=== PATIENT | female | born 1965 ===

== ENCOUNTER 2016-08-07 06:20 | Inpatient (IN) | payer MEDICARE, OTHER ==
--- NOTE | 2016-08-07 06:28 | ED PDOC ---
Arrival/HPI - General Time Seen by Provider: 08/07/16 06:27 - History of Present Illness Narrative History of Present Illness (Text): 08/07/16 06:27 Patient returns to ED for admission if the patient eloped patient was to be admitted to psychiatry patient exhibits drug-seeking behavior patient was previously evaluated by PES for admission and accepted Past Medical History - Provider Review Nursing Documentation Reviewed: Yes - Infectious Disease Hx of Infectious Diseases: None - Tetanus Immunization Tetanus Immunization: Unknown - Past Medical History Past Medical History: No Previous - Cardiac Hx Cardiac Disorders: No (Unknown at present.) - Pulmonary Hx Respiratory Disorders: No - Neurological Hx Paralysis: No - HEENT Hx HEENT Disorder: Yes (Wears glasses.) - Renal Hx Renal Disorder: No - Endocrine/Metabolic Hx Endocrine Disorders: No - Hematological/Oncological Hx Blood Transfusions: No - Integumentary Hx Dermatological Disorder: No - Musculoskeletal/Rheumatological Hx Musculoskeletal Disorders: No - Gastrointestinal Hx Gastrointestinal Disorders: Yes Hx Colitis: Yes Hx Diverticulitis: Yes Hx Gastroesophageal Reflux: Yes Other/Comment: 06/2016 endoscopy- colitis - Genitourinary/Gynecological Hx Genitourinary Disorders: No - Psychiatric Hx Anxiety: Yes Hx Bipolar Disorder: Yes Hx Depression: Yes Hx Emotional Abuse: No Hx Physical Abuse: No Hx Substance Use: No - Past Surgical History Past Surgical History: No Previous - Surgical History Hx Appendectomy: Yes - Anesthesia Hx Anesthesia: Yes Hx Anesthesia Reactions: No Hx Malignant Hyperthermia: No - Suicidal Assessment Feels Threatened In Home Enviroment: No Family/Social History - Physician Review Nursing Documentation Reviewed: Yes Family/Social History: No Known Family HX Smoking Status: Heavy Smoker > 10 Cigarettes Daily Hx Alcohol Use: Yes Hx Substance Use: No Hx Substance Use Treatment: No Allergies/Home Meds Allergies/Adverse Reactions: Allergies haloperidol [From Haldol] Allergy (Verified 08/08/16 01:43) ANAPHYLAXIS haloperidol lactate [From Haldol] Allergy (Verified 08/08/16 01:43) ANAPHYLAXIS lamotrigine [From Lamictal] Allergy (Verified 08/08/16 01:43) ANAPHYLAXIS Home Medications: Home Meds Medication Instructions Recorded Confirmed Benztropine [Benztropine Mesylate] 1 mg PO BID 09/03/14 08/08/16 FLUoxetine [Fluoxetine HCl] 20 mg PO DAILY 03/14/16 08/08/16 Review of Systems - Review of Systems Constitutional: Normal Eyes: Normal ENT: Normal Respiratory: Normal Cardiovascular: Normal Gastrointestinal: Abdominal Pain Genitourinary Female: Normal Musculoskeletal: Normal Skin: Normal Neurological: Normal Endocrine: Normal Hemo/Lymphatic: Normal Psychiatric: Depression, Suicidal Ideation Physical Exam Vital Signs Reviewed: Yes Vital Signs Temp Pulse Resp BP Pulse Ox 08/07/16 06:53 98 F 75 19 112/74 99 08/07/16 06:33 98.1 F 78 18 136/78 98 Temperature: Afebrile Blood Pressure: Normal Pulse: Regular Respiratory Rate: Normal Appearance: Positive for: Well-Appearing, Non-Toxic, Comfortable Pain Distress: None Mental Status: Positive for: Alert and Oriented X 3 - Systems Exam Head: Present: Atraumatic, Normocephalic Pupils: Present: PERRL Extroacular Muscles: Present: EOMI Conjunctiva: Present: Normal Mouth: Present: Moist Mucous Membranes Neck: Present: Normal Range of Motion Respiratory/Chest: Present: Clear to Auscultation, Good Air Exchange. No: Respiratory Distress, Accessory Muscle Use Cardiovascular: Present: Regular Rate and Rhythm, Normal S1, S2. No: Murmurs Abdomen: Present: Normal Bowel Sounds. No: Tenderness, Distention, Peritoneal Signs Back: Present: Normal Inspection Upper Extremity: Present: Normal Inspection. No: Cyanosis, Edema Lower Extremity: Present: Normal Inspection. No: Edema Neurological: Present: GCS=15, CN II-XII Intact, Speech Normal Skin: Present: Warm, Dry, Normal Color. No: Rashes Psychiatric: Present: Alert, Oriented x 3, Normal Insight, Normal Concentration. No: Suicidal Ideation, Homicidal Ideation Medical Decision Making - Medication Orders Current Medication Orders: Acetaminophen (Tylenol 325mg Tab) 650 mg PO Q4H PRN PRN Reason: Pain, Mild (1-3) Al Hydrox/Mg Hydrox/Simethicone (Maalox Plus 30 Ml) 30 ml PO DAILY PRN PRN Reason: Upset Stomach Clonazepam (Klonopin) 1 mg PO AMHS BETSEY PRN Reason: Protocol Last Admin: 08/09/16 21:56 Dose: 1 MG Behavioural Document 08/09/16 21:56 MB (Rec: 08/09/16 21:56 MB [id number]) Maintenance Maintenance Dose Yes Re-Assess: Reassess Psych Meds Document 08/09/16 22:56 MB (Rec: 08/10/16 02:53 [id number] Reassess Psych Med Effective Divalproex Sodium (Depakote Er(Once Daily)) 500 mg PO HS BETSEY PRN Reason: Protocol Last Admin: 08/09/16 21:57 Dose: 500 MG Behavioural Document 08/09/16 21:57 MB (Rec: 08/09/16 21:57 [id number] Maintenance Maintenance Dose Yes Re-Assess: Reassess Psych Meds Document 08/09/16 22:57 MB (Rec: 08/10/16 02:53 MB [id number]) Reassess Psych Med Effective Fluoxetine HCl (Prozac) 20 mg PO BID [facility]SEY Last Admin: 08/09/16 17:11 Dose: 20 MG Magnesium Hydroxide (Milk Of Magnesia) 30 ml PO DAILY PRN PRN Reason: Constipation Pantoprazole Sodium (Protonix Ec Tab) 40 mg PO ACB [facility] Last Admin: 08/09/16 09:29 Dose: 40 MG Risperidone (Risperdal Tab) 1 mg PO AMHS BETSEY PRN Reason: Protocol Last Admin: 08/09/16 21:56 Dose: 1 MG Behavioural Document 08/09/16 21:56 MB (Rec: 08/09/16 21:57 MB [id number]) Maintenance Maintenance Dose Yes Re-Assess: Reassess Psych Meds Document 08/09/16 22:56 MB (Rec: 08/10/16 02:53 [id number] Reassess Psych Med Effective Discontinued Medications Clonazepam (Klonopin) 1 mg PO BID BETSEY PRN Reason: Protocol Divalproex Sodium (Depakote Er(Once Daily)) 500 mg PO DAILY [facility]Y PRN Reason: Protocol Last Admin: 08/08/16 09:28 Dose: Divalproex Sodium (Depakote Er(Once Daily)) 500 mg PO STAT STA PRN Reason: Protocol Stop: 08/07/16 11:11 Last Admin: 08/07/16 11:51 Dose: 500 MG Re-Assess: Reassess Psych Meds Document 08/07/16 12:51 CV (Rec: 08/07/16 15:37 CV [id number]) Reassess Psych Med Effective Fluoxetine HCl (Prozac) 20 mg PO DAILY [facility] Last Admin: 08/08/16 09:31 Dose: Fluoxetine HCl (Prozac) 20 mg PO STAT STA Stop: 08/07/16 11:09 Last Admin: 08/07/16 11:52 Dose: 20 MG Disposition/Present on Arrival - Present on Arrival Any Indicators Present on Arrival: No History of DVT/PE: No History of Uncontrolled Diabetes: No Urinary Catheter: No History Surgical Site Infection Following: None - Disposition Have Diagnosis and Disposition been Completed?: Yes Diagnosis: Depressive disorder Disposition: HOSPITALIZED Disposition Time: 06:50 Condition: GOOD
[2016-08-07 06:33] VITALS: BMI 27.5
[2016-08-07 06:54] VITALS: O2SAT 99
[2016-08-07 11:02] LABS: ADD MANUAL DIFF? NO
[2016-08-07 11:07] LABS: BASO # 0.05 K/mm3 (0.0-2.0); BASO % 0.4 % (0.0-3.0); EOS # 0.3 (0.0-0.7); GRAN # 7.75 (1.4-6.5); GRAN % 63.5 % (50.0-68.0); HEMATOCRIT 33.5 % (36.0-48.0); LYMPH # 3.2 (1.2-3.4); LYMPH % 26.2 % (22.0-35.0); MEAN CELL VOLUME 90.1 fL (80.0-105.0); MEAN CORPUSCULAR HEMOGLOBIN 30.4 pg (25.0-35.0); MEAN CORPUSCULAR HGB CONC 33.7 g/dl (31.0-37.0); MEAN PLATELET VOLUME 9.2 fl (7.0-11.0); MONO % 7.9 % (1.0-6.0); PLATELET COUNT 479 10^3/uL (120.0-450.0); RED CELL DISTRIBUTION WIDTH 16.1 % (11.5-14.5); WHITE BLOOD COUNT 12.2 10^3/ul (4.5-11.0)
[2016-08-07] MEDS ORDERED: Divalproex 500 mg ER (ONCE DAILY formulation) PO STA (11:10)
[2016-08-07 11:15] LABS: ALKALINE PHOSPHATASE 94 U/L (38-133); ALT/SGPT 22 U/L (7-56); AST/SGOT 33 U/L (15-39); BILIRUBIN,TOTAL 0.8 mg/dL (0.2-1.3); BLOOD UREA NITROGEN 10 mg/dL (7-21); CALCIUM 9.2 mg/dL (8.4-10.5); CARBON DIOXIDE 27 mmol/L (21-33); CHLORIDE 104 mmol/L (98-107); CHOLESTEROL 221 mg/dL (130-200); GFR AFRICAN-AMERICAN > 60; GLUCOSE,RANDOM 95 mg/dL (70-110); SODIUM 140 mmol/L (132-148); TOTAL PROTEIN 7.6 g/dL (5.8-8.3)
[2016-08-07] MEDS ORDERED: FLUoxetine Elix 20 MG/5 ML PO SCH (11:15)
[2016-08-08] MEDS ORDERED: Alum-Mag Hydrox-Simethicone Susp (30 mL) PO PRN (00:42)
[2016-08-08] MEDS ORDERED: Magnesium Hydroxide Susp 30 ml UD PO PRN (00:42)
[2016-08-08] MEDS ORDERED: Divalproex 500 mg ER (ONCE DAILY formulation) PO SCH (08:00)
[2016-08-08] MEDS: Pantoprazole 40 mg EC Tab PO SCH (17:38)
--- NOTE | 2016-08-08 18:51 | HP ---
The patient is a , 50-year-old, female with a history of reported bipolar disorder, multiple psychiatric admissions as well as suicide attempts with followup with Dr. Garcia as an outpat ient, who was brought in by her family to the ER for complaints of abdominal pain. However, further interview with family revealed that patient has been discussing suicidal thoughts in the days prior t o her presentation to the ER. The patient initially agreed to sign herself in voluntarily for treatm ent, however, eloped from the ER and was brought back by ambulance after her nephew called expressing concern for her wellbeing. The patient has a history of a recent overdose on Seroquel, alcohol and benzos, which landed her in the ICU during her admission from 07/18/2016 to 07/24/2016 and [facility] thereafter. During her hospitalization in the ICU, she was seen by Dr. Bonilla and alannah ated with Zyprexa 15 mg at bedtime, Klonopin 1 mg b.i.d., Prozac 20 mg and Depakote ER 1000 at bedtim e. The patient reports that she has been seeing Dr. Garcia and is currently being prescribed Xanax p. r.n. 2 mg daily, Prozac 20 mg p.o. b.i.d., Cogentin 2 mg p.o. daily presumably for the side effects o f Seroquel, which was discontinued by Dr. Garcia recently and Restoril unknown dose. I met with patient at bedside and patient denies having any suicidal thoughts or discussing having an y suicidal thoughts. She reports that she feels like she has been functioning relatively well and th at she has been taking the medications that Dr. Garcia had prescribed. The patient reports her sleep has been restful and she slept well last night and she denies having any pain and she feels rested. She is superficially friendly, cooperative and there have been no behavioral issues on the unit. She is groomed and delusions were not elicited. The patient denies any hallucinations. The patient ___ __ having suicidal thoughts because he is currently staying at her place and he wants to stay there l onger with her out of the way. PSYCHIATRIC HISTORY: The patient with multiple psychiatric hospitalizations. Most recently, patient was hospitalized from 07/18/2016 to 07/24/2016 after she overdosed on Seroquel, alcohol and benzos. T he patient was screened and involuntarily transferred to [facility]. The patient rep orted that the patient also had a suicide attempt approximately 2 years ago and was in the ICU. She reports that she sees Dr. Garcia as an outpatient and her next appointment was supposed to be tomorrow on 08/09/2016. Her most recent appointment with him was a month ago. The patient reports at that ti me, she was prescribed Xanax p.r.n. 2 mg daily, Prozac 20 mg p.o. b.i.d., Cogentin 2 mg daily and Res toril, unknown dose. SOCIAL HISTORY: The patient was born in [place] and raised in [place] and [place]. She is di vorced. She has 2 kids who are twins. The patient reports that she lives by herself, however, her n ephew has been staying with her recently. The patient reported she graduated high school. IMPRESSION: Bipolar disorder by history. PLAN: 1. Group milieu and supportive therapy. 2. Depakote 500 mg p.o. at bedtime to help with mood and impulse control. 3. Klonopin 1 mg a.m. and at bedtime to help with mood control as well as reports of anxiety. 4. Prozac 20 mg p.o. b.i.d. for depression and anxiety. 5. Currently awaiting medical consult. 6. Vitals were reviewed and as of 9 a.m. this morning, they were 98.3, 76, 112/72 and 16. 7. Labs were reviewed and on 08/07/2016, CBC showed a white blood cell count of 12.2, hemoglobin and hematocrit of 11.3 and 33.5 respectively, and a platelet count of 479, which is high. The chemistry profile and LFTs were within normal limits. Triglycerides on 08/07 was 89, cholesterol level was elev ated to 21, LDL was elevated at 141, HDL was 49, within normal limits. TSH was within normal limits at 0.57. RPR was nonreactive. Her last glucose on 08/08/2006 was 82 . Kelli Huerta MD cc: [id number] TT: 08/08/2016 18:50:38 en
[2016-08-08] MEDS: Divalproex 500 mg ER (ONCE DAILY formulation) PO SCH (21:54)
[2016-08-09 07:14] LABS: HEMATOCRIT 33.8 % (36.0-48.0); MEAN CELL VOLUME 91.6 fL (80.0-105.0); MEAN CORPUSCULAR HEMOGLOBIN 29.8 pg (25.0-35.0); MEAN CORPUSCULAR HGB CONC 32.5 g/dl (31.0-37.0); MEAN PLATELET VOLUME 9.3 fl (7.0-11.0); RED CELL DISTRIBUTION WIDTH 16.4 % (11.5-14.5); WHITE BLOOD COUNT 9.7 10^3/ul (4.5-11.0)
[2016-08-09] MEDS: Pantoprazole 40 mg EC Tab PO SCH (09:29)
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
[2016-08-09] MEDS: Divalproex 500 mg ER (ONCE DAILY formulation) PO SCH (21:57)
[2016-08-10] MEDS: Pantoprazole 40 mg EC Tab PO SCH (08:57)
[2016-08-10 10:01] VITALS: RESP 20
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
--- NOTE | 2016-08-10 16:32 | CON ---
DATE: 08/08/2016 REASON FOR CONSULT: Medical evaluations. HISTORY OF PRESENT ILLNESS: This patient is a 50-year-old female with history of bipolar disorder, d epression with recent admissions, with drug overdose Seroquel and was in ICU, seen by Dr. Bonilla and she was discharged to involuntary admissions, committed with involuntary admission to [facility] and was released recently. Medically, patient does have anemia. She has GI evaluations including colonoscopy with removing of benign polyps and also, she has a gastritis. Her anemia seems stable. Her medical condition seems stable. She does have some low cholesterol mild problems. She is watching her diet, questionable her compliance with diet. She also has a weight issue. Her BMI is elevated. She has an elevated BMI. Currently, she has no new complaints. She is on the bedside. No new complaint. No chest pain, no short of breath, no nausea, no vomiting, no burning urination. No fever, no chills. ALLERGIES: ALLERGIC TO HALDOL AND LAMOTRIGINE. SOCIAL HISTORY: She is . She lives by herself. She has 2 children grownup, one was in the in [place] and came back. Also, she has a boyfriend who ____ her and she had a conflict with [employer] and was rejected and she lives right now. She was born in [place]. She was raised in [place] . She lived in [place] for a while and then she came to [place]. Currently, she is by herself and her nephew recently was homeless and got lived in with her recently in an apartment. She smoked, no dri nking. FAMILY HISTORY: Noncontributory. REVIEW OF SYSTEMS: She does complain sometimes of dyspepsia, abdominal discomfort. Occasionally she has rectal bleeding, which she had a colonoscopy for it. She does have also hemorrhoids. PHYSICAL EXAMINATION: VITAL SIGNS: As follows: Temperature 98, heart rate 76, blood pressure 117/72, respirations 18. HEAD AND NECK: Normal. No JVD, no thyromegaly. CHEST: Clear, good entry. CARDIAC: First sound, second sound normal. ABDOMEN: Soft, obese, nontender. EXTREMITIES: No edema. NEUROLOGIC: She moves all extremities and she is alert, awake, oriented x 3. LABORATORY DATA: As follows: White count 12.2, hemoglobin 11.3, hematocrit 33.5, platelets 479. Ch emistry: Sodium 140, potassium 4, chloride 104, bicarb 27, BUN 10, creatinine 0.7. Liver function t est is normal. Her cholesterol is 221, her LDL 141. TSH is 0.57. IMPRESSION AND PLAN: This is a 50-year-old female who came in with psychiatric symptoms, depression, possible suicidal. At this time she is stable medically. She is asymptomatic. We will ____ for le ukocytosis, etiology unclear. We will repeat CBC in the morning. We will get a urinalysis. We will follow up on her tomorrow. We will give her gastrointestinal and deep venous thrombosis prophylaxis , Protonix and Lovenox and will follow up with the psychiatrist. Continue current psych medications and follow up clinically. Castillo Ca MD cc: 223 TT: 08/10/2016 16:31:08 Confirmation # [id number] Dictation # [id number]
--- NOTE | 2016-08-10 16:35 | PN ---
DATE: 08/09/2016 The patient in the bed, comfortable. She seems in no physical distress. She wants to go home. She is complaining that her nephew get her out of here, she wants to go back to her house. Currently, [place] has no chest pain, no short of breath, no nausea, no vomiting, no dizziness. PHYSICAL EXAMINATION: VITAL SIGNS: Temperature is 97.6, heart rate 78, blood pressure 118/76, respirations 18. HEAD AND NECK: Normal. No JVD, no thyromegaly. CHEST: Clear, good entry. CARDIAC: First sound, second sound normal. ABDOMEN: Soft, nontender. EXTREMITIES: No edema. NEUROLOGIC: Normal. The patient is obese. CURRENT MEDICATIONS: She is getting Depakote 500 mg p.o. at bedtime. She is getting Klonopin 1 mg b .i.d. She is getting Maalox, milk of magnesia, Protonix, Prozac 20 mg b.i.d., Risperdal 2 mg twice a day and Tylenol 650 mg p.o. q. 4 hours. IMPRESSION AND PLAN: 1. Bipolar disorder, depression, will follow up with the psychiatrist. Continue psychiatric medicin es. We will watch for gain weight and metabolic disorder with this antipsychotic treatment including the high triglycerides, high cholesterol, gaining weight and developing diabetes. We have to be car eful with the weight gain and other associated metabolic derangement. 2. Leukocytosis. Repeat CBC is normal. Her white count was 9.7, hemoglobin 11, hematocrit 33.8, pl atelets 426. We will continue to monitor that. Still waiting for UA, culture and sensitivity and __ __. Continue current treatment. Continue gastrointestinal and deep venous thrombosis prophylaxis. We will follow up. Castillo Ca MD cc: 223 TT: 08/10/2016 16:34:57 Confirmation # [id number] Dictation # [id number] tn
[2016-08-10 17:45] LABS: PH,URINE 5.5 (4.7-8.0); URINE APPEARANCE SL CLOUDY (CLEAR); URINE BILIRUBIN NEGATIVE (NEGATIVE); URINE BLOOD LARGE (NEGATIVE); URINE COLOR YELLOW (YELLOW); URINE GLUCOSE (UA) NEGATIVE (NEGATIVE); URINE KETONE NEGATIVE (NEGATIVE); URINE LEUKOCYTE ESTERASE TRACE Leu/uL (NEGATIVE); URINE PROTEIN NEGATIVE mg/dL (<30 mg/dL); URINE UROBILINOGEN 0.2 E.U./dL (<1 E.U./dL)
[2016-08-10 17:52] LABS: URINE BACTERIA MANY (NEG); URINE EPITHELIAL CELLS MANY /hpf (0-5); URINE RBC 15 - 20 /hpf (0-2)
[2016-08-10] MEDS: Divalproex 500 mg ER (ONCE DAILY formulation) PO SCH (21:42)
--- NOTE | 2016-08-11 01:46 | PN ---
DATE: 08/10/2016 The patient is a 50-year-old female was seen on psych floor. The patient sitting, watching TV, no di stress. She wants to go home. There is no other complaint. No abdominal pain, no nausea, no vomiti ng. Eating well. No other complaints. PHYSICAL EXAMINATION: VITAL SIGNS: Her temperature is 98.5, heart rate 81, blood pressure 105/69, respirations 20. HEAD AND NECK: Normal. No JVD, no thyromegaly. CHEST: Clear, good air entry. CARDIAC: First and second sounds are normal. ABDOMEN: Soft, nontender. EXTREMITIES: No edema. NEUROLOGIC: Normal. LABORATORY: The patient also had at UA 80 which shows red blood cells 15-28. ASSESSMENT AND PLAN: 1. Bipolar disorder, depression. Continue antipsychotic therapy Risperdal b.i.d. The patient is ge tting antidepressant also Prozac, Depakote, mood stabilizers. Seems stable. Continue antipsychotic therapy and follow up clinically. 2. The patient has a history of acid reflux, colon polyps, anemia. Will continue Protonix. 3. Hypercholesterolemia. Started on Zetia. 4. Microscopic hematuria. We will follow up on that. The patient may need a renal ultrasound to ev aluate her kidneys. Continue current management. The patient seems moving around now. She is doing well and will continue current management. Castillo Ca MD cc: 223 TT: 08/11/2016 01:45:21 Confirmation # [id number] Dictation # [id number] jn
[2016-08-11] MEDS ORDERED: Enoxaparin 40 mg Syringe SC SCH (08:00)
[2016-08-11] MEDS: Pantoprazole 40 mg EC Tab PO SCH (08:09)
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
--- NOTE | 2016-08-11 13:52 | US ---
PROCEDURE: Ultrasound of the Kidneys HISTORY: microscopic hematuria COMPARISON: None available. TECHNIQUE: Sonogram of the kidneys. FINDINGS: RIGHT KIDNEY: Measures: 10.4 x 4.8 x 4.9 cm. Normal in size, contour and echogenicity. No stone, solid mass lesion or hydronephrosis visualized. LEFT KIDNEY: Measures: 9.7 x 6.4 x 5.3 cm. Normal in size, contour and echogenicity. No stone, solid mass lesion or hydronephrosis visualized. OTHER FINDINGS: None. IMPRESSION: Unremarkable renal sonogram. No gross sonographic renal calculi. No hydronephrosis or renal masses appreciated
--- NOTE | 2016-08-11 18:19 | US ---
HISTORY: Leg pain and swelling. Evaluate for DVT PHYSICIAN(S): Bryon Mccallum MD. TECHNIQUE: Duplex sonography and color-flow Doppler with graded compression were used to evaluate the deep venous systems of both lower extremities. FINDINGS: The visualized deep venous systems of both lower extremities are sonographically normal and compressible. Normal wave forms and augmentation are seen. There is no sonographic evidence for deep venous thrombosis in the visualized segments of both lower extremities. IMPRESSION: No sonographic evidence for deep venous thrombosis in the visualized segments of both lower extremities.
--- NOTE | 2016-08-11 20:01 | PN ---
DATE: 08/11/2016 The patient seems to be doing well. No chest pain, not short of breath. No abdominal pain. She is clinically stable, still getting antipsychotic therapy. PHYSICAL EXAMINATION: VITAL SIGNS: Today temperature 98.1, heart rate 83, blood pressure 126/72, respirations 20. HEAD AND NECK: Normal. No JVD, no thyromegaly. CHEST: Clear. Good air entry. CARDIAC: First and second sounds are normal. ABDOMEN: Soft, nontender. EXTREMITIES: No edema. NEUROLOGIC: Normal. IMPRESSION AND PLAN: 1. Microscopic hematuria. Ultrasound of the kidney was normal. 2. Depression with history of bipolar disorder, suicidal thoughts, continue psych therapy. 3. Anemia. 4. History of gastritis, colon polyps. Continue Protonix, continue current management. Castillo Ca MD cc: 223 TT: 08/11/2016 20:00:45 Confirmation # [id number] Dictation # [id number] jn
[2016-08-11] MEDS: Divalproex 500 mg ER (ONCE DAILY formulation) PO SCH (21:50)
[2016-08-12] MEDS: Pantoprazole 40 mg EC Tab PO SCH (08:03)
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
[2016-08-12] MEDS: Divalproex 500 mg ER (ONCE DAILY formulation) PO SCH (21:38)
[2016-08-13] MEDS: Pantoprazole 40 mg EC Tab PO SCH (09:19)
--- NOTE | 2016-08-13 12:19 | PN ---
DATE: 08/12/2016 A 50-year-old female admitted with bipolar disorder, depression, suicidal ideation and threats. The patient clinically stable. Physically she has no chest pain, no short of breath. No blood in the ur ine. The patient is stable hemodynamically. PHYSICAL EXAMINATION: VITAL SIGNS: Temperature 98.1, heart rate 81, blood pressure 126/71, respirations 20. HEAD AND NECK: Normal. No JVD, no thyromegaly. CHEST: Clear, good entry. CARDIAC: First and second sounds are normal. ABDOMEN: Soft, obese, nontender. EXTREMITIES: No edema. NEUROLOGIC: Normal. LABORATORY DATA: Ultrasound is normal of the renal. IMPRESSION AND PLAN: 1. History of anemia, stable. She had esophagogastroduodenoscopy, colonoscopy in the past. History of colon polyps, gastritis. Continue Protonix. 2. Microscopic hematuria. Renal ultrasound is negative. 3. Bipolar disorder with depression and suicidal thoughts. Will follow up with Dr. Gillette. Continue current medications. The patient wants to go home, I told patient that decision is up to the psychia trist. She understands. 4. Hypercholesterolemia. Continue Zetia. PLAN: Continue current treatment. Castillo Ca MD cc: 223 TT: 08/13/2016 12:18:56 Confirmation # [id number] Dictation # [id number] jn
[2016-08-13] MEDS ORDERED: RISPERIDAL Consta 50 MG INJ IM SCH (13:45)
[2016-08-13] MEDS: Divalproex 500 mg ER (ONCE DAILY formulation) PO SCH (21:27)
--- NOTE | 2016-08-14 04:31 | PCM.PYCHDC ---
Mental Status Examination - Mental Status Examination Orientation: Person, Place, Situation Memory: Intact Mood: Neutral Affect: Broad Speech: Appropriate Attention: WNL Concentration: WNL Association: WNL Fund of Knowledge: WNL Formal Thought Process: No Impairment Description of patient's judgement and insight: IMPROVED INSIGHT AND JUDGMENT, CONSIDERED FAIR AT DISCHARGE Psychotic Thoughts and Behaviors: NO AVH, NO DELUSIONS ELICITED, NO OVERT PARANOIA Suicidal Ideation: No Current Homicidal Ideation?: No Discharge Summary - Discharge Note Reason for Hospitalization: Patient is 50 years old [place] female, history of bipolar disorder type I, history of alcohol abuse, cannabis abuse, history of multiple hospitalizations in to the psychiatric inpatient unit, history of at least 2 suicidal attempts most recent was in June 2016 when patient was admitted in ICU for evaluation of status post overdose on medications. initially patient came over for evaluation of abdominal pain (as per pt), but as per pt's family (ED) pt was brought in for evaluation of suicidal ideation, ? s/p suicidal attempt pt turn on the stove CO poisoning. Psychiatric History (includes Medical, Family, Personal Hx): SEE HPI Laboratory Data: Laboratory Tests 08/07/16 08/07/16 08/08/16 10:50 13:10 07:29 WBC 12.2 H RBC 3.72 Hgb 11.3 L Hct 33.5 L MCV 90.1 MCH 30.4 MCHC 33.7 RDW 16.1 H Plt Count 479 H MPV 9.2 Gran % 63.5 Lymph % (Auto) 26.2 [place] % (Auto) 7.9 H Eos % (Auto) 2.0 Baso % (Auto) 0.4 Gran # 7.75 H Lymph # 3.2 [place] # 1.0 H Eos # 0.3 Baso # 0.05 Sodium 140 Potassium 4.0 Chloride 104 Carbon Dioxide 27 Anion Gap 13 BUN 10 Creatinine 0.7 Est GFR ( Amer) > 60 Est GFR (Non-Af Amer) > 60 Random Glucose 95 Fasting Glucose 82 Calcium 9.2 Total Bilirubin 0.8 AST 33 ALT 22 Alkaline Phosphatase 94 Total Protein 7.6 Albumin 3.8 Globulin 3.8 Albumin/Globulin Ratio 1.0 L Triglycerides 89 Cholesterol 221 H LDL Cholesterol Direct 141 H HDL Cholesterol 49 TSH 3rd Generation 0.57 Urine Color Urine Appearance Urine pH Ur Specific [place] Urine Protein Urine Glucose (UA) Urine Ketones Urine Blood Urine Nitrate Urine Bilirubin Urine Urobilinogen Ur Leukocyte Esterase Urine RBC Urine WBC Ur Epithelial Cells Urine Bacteria Urine Other RPR Nonreactive 08/09/16 08/10/16 07:02 17:41 WBC 9.7 D RBC 3.69 Hgb 11.0 L Hct 33.8 L MCV 91.6 MCH 29.8 MCHC 32.5 RDW 16.4 H Plt Count 426 MPV 9.3 Gran % Lymph % (Auto) [place] % (Auto) Eos % (Auto) Baso % (Auto) Gran # Lymph # [place] # Eos # Baso # Sodium Potassium Chloride Carbon Dioxide Anion Gap BUN Creatinine Est GFR ( Amer) Est GFR (Non-Af Amer) Random Glucose Fasting Glucose Calcium Total Bilirubin AST ALT Alkaline Phosphatase Total Protein Albumin Globulin Albumin/Globulin Ratio Triglycerides Cholesterol LDL Cholesterol Direct HDL Cholesterol TSH 3rd Generation Urine Color Yellow Urine Appearance Sl cloudy Urine pH 5.5 Ur Specific [place] 1.020 Urine Protein Negative Urine Glucose (UA) Negative Urine Ketones Negative Urine Blood Large H Urine Nitrate Negative Urine Bilirubin Negative Urine Urobilinogen 0.2 Ur Leukocyte Esterase Trace H Urine RBC 15 - 20 Urine WBC 2 - 5 Ur Epithelial Cells Many Urine Bacteria Many Urine Other Uyeast RPR Consultations:: List each consultation separately and include: 1. Reason for request. 2. Findings. 3. Follow-up Consultations: Seen by Dr. Ca for routine medical care on 08/10/16, 08/11/16 and 08/13/16. Zetia was intiated for elevated lipids Protonix and Lovenox were initiated for GI and DVT prophylaxis Labs were reviewed and followed on the unit 08/10/16 US of the extremity was negative for DVTs 08/11/16 renal sonogram (ordered because of microscopic hematuria) was wnl Summary of Hospital Course include:: 1. Description of specific treatment plan utilized for patients during their course of treatmen. 2. Summarize the time- course for resolution of acute symptoms and/or regressed behaviors. 3. Describe issues identified and worked on during hospitalization. 4. Describe medication utilized. 5. Describe medical problems identified and treated. 6. Reassessment of suicide risk Summary of Hospital Course: Patient is scheduled for discharge today and this provider mets with her to ensure stability for discharge. Patient reports improvement since his admission and denies having any new concerns. Indicates mood is improved and that she is feeling more hopeful and in control. Denies having any wishes, suicidal thoughts. Specifically denies thoughts to harm others. Patient also denies having any perceptual disturbance and she is not responding internal stimuli. Delusions were not elicited during today's interview. Focus and eye contact are good. Patient is related and affect demonstrates good range with appropriate reactivity. Patient reports that she is tolerating his medications. Tolerated Risperdal Consta well yesterday. She plans to continue with medications upon discharge. Overall she feels very comfortable with today's discharge date and after care plans. Thankful for her care and pleasant with this instructional writer and staff members on discharge date. - Final Diagnosis (DSM 5) Condition upon Discharge: GOOD DSM 5: bipolar disorder I, with psychosis r/o substance induced mood disorder alcohol use disorder to be r/o cannabis abuse Disposition: HOME/ ROUTINE Follow-up Treatment Plan: PER CHRISTINA DAVIDSON 08/12/16 As per Estela Kumar from [facility], pt accepted back to partial care. ' Of note: Patient received Risperdal [id number] mg IM on 08/13/16 Prescriptions/Medication Reconciliation: Divalproex [Depakote ER(ONCE DAILY)] 500 mg PO HS #14 ter Clonazepam [Klonopin] 1 mg PO AMHS #30 tab Pantoprazole [Protonix EC Tab] 40 mg PO ACB #7 ect Fluoxetine HCl [Prozac] 40 mg PO DAILY #14 capsule Risperidone [RISPERDAL Consta Inj] 50 mg IM Q14D #1 inj risperiDONE [RisperDAL] 2 mg PO AMHS #30 tab Ezetimibe [Zetia] 10 mg PO DAILY #7 tab - Smoking Cessation Smoking Cessation Medication prescribed: No Reason for not providing: patient smokes half of the pack a day, refused to be on nicotine patch - Antipsychotic Medications Pt discharged on 2 or more routine antipsychotic medications: No
[2016-08-14] MEDS: Pantoprazole 40 mg EC Tab PO SCH (08:32)
[2016-08-14 10:15] VITALS: BP 118/76; PULSE 100; TEMP 98.4
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
== END 2016-08-14 11:59 | disposition home or self-care (01) | DRG 885 ==
LOC: ED 06:20 → ERH 06:39 → PSYC 07:51
PROVIDERS: ADMIT Psychiatry & Neurology Psychiatry; ATTEND Psychiatry & Neurology Psychiatry
DX: F31.9 Bipolar disorder, unspecified (principal); R45.851 Suicidal ideations; Z91.14 Patient's other noncompliance with medication regimen; D64.9 Anemia, unspecified; F19.14 Other psychoactive substance abuse with psychoactive substance-induced mood disorder; F12.10 Cannabis abuse, uncomplicated; D72.829 Elevated white blood cell count, unspecified; E78.00 Pure hypercholesterolemia, unspecified; F17.210 Nicotine dependence, cigarettes, uncomplicated; F41.9 Anxiety disorder, unspecified; K21.9 Gastro-esophageal reflux disease without esophagitis; K29.70 Gastritis, unspecified, without bleeding; R31.29 Other microscopic hematuria; Z76.5 Malingerer [conscious simulation]; Z79.899 Other long term (current) drug therapy; Z86.010 Personal history of colon polyps; Z90.49 Acquired absence of other specified parts of digestive tract; Z91.5 Personal history of self-harm; Z88.8 Allergy status to other drugs, medicaments and biological substances; Z87.892 Personal history of anaphylaxis; R40.2412 Glasgow coma scale score 13-15, at arrival to emergency department; F10.10 Alcohol abuse, uncomplicated

== ENCOUNTER 2017-02-03 22:38 | Inpatient (IN) | payer MEDICARE, OTHER ==
[2017-02-03 22:38] VITALS: BMI 27.5
[2017-02-03] MEDS ORDERED: Sodium Chloride 0.9% 1,000 ML IV STA (23:34)
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
[2017-02-04 00:15] LABS: BASO # 0.05 K/mm3 (0.0-2.0); BASO % 0.4 % (0.0-3.0); EOS # 0.3 (0.0-0.7); EOS % 2.2 % (1.5-5.0); GRAN # 6.6 (1.4-6.5); GRAN % 55.4 % (50.0-68.0); LYMPH # 4.1 (1.2-3.4); LYMPH % 34.7 % (22.0-35.0); MEAN CELL VOLUME 90.9 fl (80.0-105.0); MEAN CORPUSCULAR HEMOGLOBIN 30.6 pg (25.0-35.0); MEAN CORPUSCULAR HGB CONC 33.6 g/dl (31.0-37.0); MEAN PLATELET VOLUME 9.6 fl (7.0-11.0); MONO # 0.9 (0.1-0.6); MONO % 7.3 % (1.0-6.0); RED CELL DISTRIBUTION WIDTH 13.6 % (11.5-14.5); WHITE BLOOD COUNT 11.9 10^3/ul (4.5-11.0)
[2017-02-04 00:23] LABS: INR 0.95 (0.93-1.08); PARTIAL THROMBOPLASTIN TIME 27.9 Seconds (23.7-30.8)
[2017-02-04 00:24] LABS: ALB/GLOB RATIO 1.2 (1.1-1.8); ALKALINE PHOSPHATASE 116 U/L (38-126); ALT/SGPT 16 U/L (7-56); AMYLASE 68 U/L (35-125); AST/SGOT 23 U/L (14-36); BILIRUBIN,TOTAL 0.4 mg/dL (0.2-1.3); BLOOD UREA NITROGEN 18 mg/dL (7-21); CALCIUM 9.7 mg/dL (8.4-10.5); CARBON DIOXIDE 26 mmol/L (21-33); CHLORIDE 106 mmol/L (98-107); GFR AFRICAN-AMERICAN > 60; GLUCOSE,RANDOM 86 mg/dL (70-110); LIPASE 45 U/L (23-300); POTASSIUM 4.3 mmol/L (3.6-5.0); SODIUM 140 mmol/L (132-148); TOTAL PROTEIN 7.5 g/dL (5.8-8.3); URINE BILIRUBIN MODERATE (NEGATIVE); URINE BLOOD NEGATIVE (NEGATIVE); URINE GLUCOSE (UA) NEGATIVE (NEGATIVE); URINE KETONE 15 mg/dL (NEGATIVE); URINE LEUKOCYTE ESTERASE NEGATIVE Leu/uL (NEGATIVE); URINE PROTEIN TRACE mg/dL (<30 mg/dL)
[2017-02-04 00:28] LABS: URINE APPEARANCE SL CLOUDY (CLEAR); URINE COLOR DARK YELLOW (YELLOW)
[2017-02-04] MEDS ORDERED: cefTRIAXone 1 gm 1 GM/100 ML BAG IVPB STA (00:29)
[2017-02-04 00:33] LABS: URINE BACTERIA MOD (NEG); URINE CALCIUM OXALATE CRYSTALS RARE /hpf; URINE RBC 0 - 2 /hpf (0-2)
[2017-02-04 00:34] LABS: URINE EPITHELIAL CELLS MANY /hpf (0-5)
[2017-02-04 00:41] LABS: TROPONIN I < 0.01 ng/mL
[2017-02-04] MEDS ORDERED: Iohexol 350 MG/100 ML VIAL ONE (00:57)
[2017-02-04] MEDS: metroNIDAZOLE IV 500 mg/100 ml 500 MG/100 ML BAG IVPB STA ×2 (03:41→04:12)
[2017-02-04] MEDS ORDERED: HYDROmorphone 0.5 mg/0.5 ml ISec IVP STA (06:08)
--- NOTE | 2017-02-04 09:22 | CT ---
PROCEDURE: CT Abdomen and Pelvis with contrast HISTORY: left sided pain COMPARISON: None. TECHNIQUE: Contrast dose: 100 cc of Omni 350 Radiation dose: Total exam DLP = 600 mGy-cm. This CT exam was performed using one or more of the following dose reduction techniques: Automated exposure control, adjustment of the mA and/or kV according to patient size, and/or use of iterative reconstruction technique. FINDINGS: LOWER THORAX: Unremarkable. LIVER: Unremarkable. No gross lesion or ductal dilatation. GALLBLADDER AND BILE DUCTS: Unremarkable. PANCREAS: Unremarkable. No gross lesion or ductal dilatation. SPLEEN: Unremarkable. ADRENALS: Unremarkable. No mass. KIDNEYS AND URETERS: Unremarkable. No hydronephrosis. No solid mass. VASCULATURE: Unremarkable. No aortic aneurysm. BOWEL: There is equivocal mural thickening in the descending colon. This could represent mild colitis. APPENDIX: Normal appendix. PERITONEUM: Unremarkable. No free fluid. No free air. LYMPH NODES: Unremarkable. No enlarged lymph nodes. BLADDER: Unremarkable. REPRODUCTIVE: Unremarkable. BONES: No acute fracture. OTHER FINDINGS: The report concurs with the preliminary [facility] report IMPRESSION: There is equivocal mural thickening in the descending colon. This could represent mild colitis.
[2017-02-04] MEDS ORDERED: ALPRAZOLAM 2 MG PO PRN (09:47)
[2017-02-04] MEDS ORDERED: levoFLOXacin 500 mg in D5W 500 MG/100 ML BAG IVPB SCH (10:00)
[2017-02-04] MEDS ORDERED: Non Formulary Medication (Fluoxetine Hcl [Prozac] 40 MG) PO SCH (10:00)
[2017-02-04] MEDS: Venlafaxine 75 mg ER Cap PO SCH ×2 (10:25→17:42)
[2017-02-04] MEDS: metroNIDAZOLE IV 500 mg/100 ml 500 MG/100 ML BAG IVPB SCH ×3 (10:27→21:33)
[2017-02-04] MEDS: Oxycodone/Acetaminophen 5/325 mg Tab PO PRN ×2 (11:32→18:50)
[2017-02-04] MEDS ORDERED: Dextrose 5%/0.45% NS 1,000 ML IV SCH (18:15)
[2017-02-04] MEDS: Dextrose 5%/0.9% NS 1,000 ML IV SCH (18:42)
--- NOTE | 2017-02-04 19:37 | CP.PCM.CON ---
History of Present Illness - History of Present Illness History of Present Illness: 51 year old female with PMH of diverticulitis, bipolar disorder, history of alcohol abuse, chronic back pain, S/P appendectomy came in to [facility] complaining of left sided abdominal pain since yesterday which began shortly after dinner. She was also having loose bowel movement with some blood noted with the stools. She denies eating anything out of the ordinary, no fever or chills, had an episode of vomiting and nausea, no chest pain, no dysuria, no SOB, no cough or colds. In the ED, CT scan of the abdomen and pelvis showed left sided colitis. Infectious Diseases consult is requested to further evaluate and manage. Review of Systems - Review of Systems All systems: reviewed and no additional remarkable complaints except (as per HPI ) Past Patient History - Infectious Disease Hx of Infectious Diseases: None - Tetanus Immunizations Tetanus Immunization: Unknown - Past Social History Smoking Status: Light Smoker < 10 Cigarettes Daily - CARDIAC Hx Cardiac Disorders: No (Unknown at present.) - PULMONARY Hx Respiratory Disorders: No - NEUROLOGICAL Hx Paralysis: No - HEENT Hx HEENT Problems: Yes (Wears glasses.) - RENAL Hx Chronic Kidney Disease: No - ENDOCRINE/METABOLIC Hx Endocrine Disorders: No - HEMATOLOGICAL/ONCOLOGICAL Hx Blood Transfusions: No - INTEGUMENTARY Hx Dermatological Problems: No - MUSCULOSKELETAL/RHEUMATOLOGICAL Hx Falls: No - GASTROINTESTINAL Hx Diverticulitis: Yes Hx Gastroesophageal Reflux: Yes - GENITOURINARY/GYNECOLOGICAL Hx Genitourinary Disorders: No - PSYCHIATRIC Hx Anxiety: Yes Hx Bipolar Disorder: Yes Hx Depression: Yes Hx Substance Use: No - SURGICAL HISTORY Hx Appendectomy: Yes - ANESTHESIA Hx Anesthesia: Yes Hx Anesthesia Reactions: No Hx Malignant Hyperthermia: No Meds Allergies/Adverse Reactions: Allergies Allergy/AdvReac Type Severity Reaction Status Date / Time haloperidol [From Haldol] Allergy ANAPHYLAXIS Verified 02/03/17 23:01 haloperidol lactate Allergy ANAPHYLAXIS Verified 02/03/17 23:01 [From Haldol] lamotrigine [From Lamictal] Allergy ANAPHYLAXIS Verified 02/03/17 23:01 - Medications Medications: Current Medications Alprazolam (Xanax) 2 mg PO BID PRN PRN Reason: Anxiety Benztropine Mesylate (Cogentin) 2 mg PO DAILY [facility] Fluoxetine HCl (Prozac) 40 mg PO DAILY [facility] Metronidazole (Flagyl) 500 mg in 100 mls @ 100 mls/hr IVPB Q8 [facility] PRN Reason: Protocol Ceftriaxone Sodium (Rocephin 1 Gram Ivpb) 1 gm in 100 mls @ 100 mls/hr IVPB DAILY [facility] PRN Reason: Protocol Quetiapine Fumarate (Seroquel) 150 mg PO BID [facility] Venlafaxine HCl (Effexor Xr) 75 mg PO BID [facility] Physical Exam - Constitutional Appears: Non-toxic, No Acute Distress - Head Exam Head Exam: NORMAL INSPECTION - ENT Exam ENT Exam: Mucous Membranes Moist - Neck Exam Neck exam: Negative for: Meningismus - Respiratory Exam Respiratory Exam: Decreased Breath Sounds - Cardiovascular Exam Cardiovascular Exam: +S1, +S2 - GI/Abdominal Exam GI & Abdominal Exam: Soft, Tenderness (left lower quadrant). absent: Distended , Firm, Guarding, Rebound, Rigid Results - Vital Signs Recent Vital Signs: Last Vital Signs Temp 97.7 F 02/04/17 04:08 Pulse 85 02/04/17 04:08 Resp 18 02/04/17 06:11 BP 109/66 02/04/17 04:08 Pulse Ox 100 02/04/17 04:08 - Labs Result Diagrams: 02/03/17 23:55 02/03/17 23:55 Assessment & Plan - Assessment and Plan (Free Text) Plan: Assessment Left sided colitis, etiology to be determined (R/O ischemic colitis, R/O c. diff. colitis) history of diverticulitis bipolar disorder history of alcohol abuse chronic back pain S/P appendectomy Plan started patient on Rocephin and Flagyl pending blood cx, stool cx, stool for C. diff., fecal leukocytes follow up GI evaluation will monitor clinically
--- NOTE | 2017-02-04 20:57 | CARD ---
APPROVED REPORT EKG Measurement Heart [id number] <Conclusion> Sinus tachycardia Nonspecific T wave abnormality Abnormal ECG
[2017-02-05] MEDS: Oxycodone/Acetaminophen 5/325 mg Tab PO PRN (04:05)
[2017-02-05] MEDS: Dextrose 5%/0.9% NS 1,000 ML IV SCH ×2 (04:39→17:39)
[2017-02-05 07:23] LABS: HEMATOCRIT 31.6 % (36.0-48.0); MEAN CELL VOLUME 91.6 fl (80.0-105.0); MEAN CORPUSCULAR HEMOGLOBIN 30.1 pg (25.0-35.0); MEAN CORPUSCULAR HGB CONC 32.9 g/dl (31.0-37.0); MEAN PLATELET VOLUME 9.4 fl (7.0-11.0); RED CELL DISTRIBUTION WIDTH 13.7 % (11.5-14.5); WHITE BLOOD COUNT 7.1 10^3/ul (4.5-11.0)
[2017-02-05 07:51] LABS: ALB/GLOB RATIO 1.2 (1.1-1.8); ALKALINE PHOSPHATASE 81 U/L (38-126); ALT/SGPT 26 U/L (7-56); AST/SGOT 25 U/L (14-36); BILIRUBIN,TOTAL 0.4 mg/dL (0.2-1.3); BLOOD UREA NITROGEN 11 mg/dL (7-21); CALCIUM 8.5 mg/dL (8.4-10.5); CARBON DIOXIDE 27 mmol/L (21-33); CHLORIDE 107 mmol/L (98-107); GFR AFRICAN-AMERICAN > 60; GLUCOSE,RANDOM 101 mg/dL (70-110); POTASSIUM 4.3 mmol/L (3.6-5.0); SODIUM 142 mmol/L (132-148); TOTAL PROTEIN 6.1 g/dL (5.8-8.3)
[2017-02-05] MEDS: Venlafaxine 75 mg ER Cap PO SCH ×2 (10:01→17:34)
[2017-02-05] MEDS: cefTRIAXone 1 gm 1 GM/100 ML BAG IVPB SCH (10:01)
[2017-02-05] MEDS: metroNIDAZOLE IV 500 mg/100 ml 500 MG/100 ML BAG IVPB SCH ×3 (13:27→21:07)
--- NOTE | 2017-02-05 18:10 | CP.PCM.PN ---
Subjective - Date & Time of Evaluation Date of Evaluation: 02/05/17 Time of Evaluation: 12:20 - Subjective Subjective: Comfortable, less abdominal pain. Objective - Vital Signs/Intake and Output Vital Signs (last 24 hours): Temp Pulse Resp BP Pulse Ox 98.3 F 84 20 115/69 100 02/05/17 16:38 02/05/17 16:38 02/05/17 16:38 02/05/17 16:38 02/05/17 16:38 Intake and Output: 02/05/17 02/05/17 06:59 18:59 Intake Total 540 Balance 540 - Medications Medications: Current Medications Alprazolam (Xanax) 2 mg PO BID PRN PRN Reason: Anxiety Last Admin: 02/05/17 05:37 Dose: 2 mg Benztropine Mesylate (Cogentin) 2 mg PO DAILY [facility] Last Admin: 02/05/17 10:00 Dose: 2 mg Fluoxetine HCl (Prozac) 40 mg PO DAILY [facility] Last Admin: 02/05/17 10:00 Dose: 40 mg Metronidazole (Flagyl) 500 mg in 100 mls @ 100 mls/hr IVPB Q8 [facility] PRN Reason: Protocol Last Admin: 02/05/17 13:27 Dose: 100 mls/hr Ceftriaxone Sodium (Rocephin 1 Gram Ivpb) 1 gm in 100 mls @ 100 mls/hr IVPB DAILY [facility] PRN Reason: Protocol Last Admin: 02/05/17 10:01 Dose: 100 mls/hr Dextrose/Sodium Chloride (Dextrose 5%/0.9% Ns 1000 Ml) 1,000 mls @ 100 mls/hr IV .Q10H [facility] Last Admin: 02/05/17 17:39 Dose: 100 mls/hr Oxycodone/Acetaminophen (Percocet 5/325 Mg Tab) 1 tab PO Q6H PRN PRN Reason: Pain, moderate (4-7) Stop: 02/07/17 11:13 Last Admin: 02/05/17 04:05 Dose: 1 tab Quetiapine Fumarate (Seroquel) 150 mg PO BID [facility] Last Admin: 02/05/17 17:34 Dose: 150 mg Venlafaxine HCl (Effexor Xr) 75 mg PO BID [facility] Last Admin: 02/05/17 17:34 Dose: 75 mg - Labs Labs: 02/05/17 07:00 02/05/17 07:00 PT 10.3 Seconds (9.9-11.8) 02/03/17 23:55 INR 0.95 (0.93-1.08) 02/03/17 23:55 APTT 27.9 Seconds (23.7-30.8) 02/03/17 23:55 - Constitutional Appears: Non-toxic, No Acute Distress - Head Exam Head Exam: NORMAL INSPECTION - ENT Exam ENT Exam: Mucous Membranes Moist - Neck Exam Neck Exam: absent: Meningismus - Respiratory Exam Respiratory Exam: Decreased Breath Sounds - Cardiovascular Exam Cardiovascular Exam: +S1, +S2 - GI/Abdominal Exam GI & Abdominal Exam: Soft. absent: Tenderness Assessment and Plan - Assessment and Plan (Free Text) Plan: Assessment Left sided colitis, etiology to be determined (R/O ischemic colitis, R/O c. diff. colitis) history of diverticulitis bipolar disorder history of alcohol abuse chronic back pain S/P appendectomy Plan continue Rocephin and Flagyl day 2; blood cx are negative; follow up stool cx, stool for C. diff., fecal leukocytes follow up GI evaluation will continue to monitor clinically
[2017-02-06] MEDS: Dextrose 5%/0.9% NS 1,000 ML IV SCH (02:37)
--- NOTE | 2017-02-06 05:55 | PN ---
DATE: 02/05/2017 SUBJECTIVE: This patient was seen and evaluated earlier today. Discussed with Dr. Armenta, discussed with the nursing staff. The patient still has episodes of loose bowel movements. The patient is feeling better, tolerating the diet, but still complaining of pain in the left lower quadrant, left side of the abdomen. PHYSICAL EXAMINATION: VITAL SIGNS: On examination, temperature is 98.3, blood pressure 115/69, respiration 100%, pulse is 84. HEENT: Atraumatic, anicteric. NECK: Supple. HEART: S1 and S2 heard. LUNGS: Bilateral air entry present. ABDOMEN: Soft, there was tenderness present in the left side of the abdomen, left lower quadrant, lumbar area. No rebound or guarding. EXTREMITIES: No edema, no cyanosis. NEUROLOGIC: Alert and oriented. Moves all the extremities. LABORATORY DATA: Hemoglobin 10.4, hematocrit 31.6, WBC 7.1, platelets 283. Chemistry is essentially unremarkable. IMPRESSION AND PLAN: This is a 51-year-old patient, admitted with acute onset of diarrhea, abdominal pain. The patient had a CAT scan showed some thickening in the left colon. Rule out colitis, infectious versus inflammatory. Rule out neoplasia. The patient still has some tenderness there present. The patient never had a colonoscopy, would recommend. Continue the antibiotics, liquid diet. The patient may benefit from the colonoscopic evaluation; however, based on the clinical course, we will consider about this. This was explained to the patient. The patient also had a small oropharyngeal polyp noticed on the last EGD. Requested an ENT consult to further evaluate this. Thank you very much for allowing me to participate in the care of the patient. Gila Leroy MD
[2017-02-06] MEDS: metroNIDAZOLE IV 500 mg/100 ml 500 MG/100 ML BAG IVPB SCH ×3 (06:12→21:38)
[2017-02-06] MEDS: Oxycodone/Acetaminophen 5/325 mg Tab PO PRN ×2 (06:13→13:03)
[2017-02-06] MEDS: cefTRIAXone 1 gm 1 GM/100 ML BAG IVPB SCH (10:02)
[2017-02-06] MEDS: Venlafaxine 75 mg ER Cap PO SCH ×2 (10:02→18:51)
--- NOTE | 2017-02-06 18:20 | CP.PCM.PN ---
Subjective - Date & Time of Evaluation Date of Evaluation: 02/06/17 Time of Evaluation: 11:00 - Subjective Subjective: Comfortable, not in distress, afebrile. Less abdominal pain. Objective - Vital Signs/Intake and Output Vital Signs (last 24 hours): Temp Pulse Resp BP Pulse Ox 98.3 F 84 20 115/69 100 02/05/17 16:38 02/05/17 16:38 02/05/17 16:38 02/05/17 16:38 02/05/17 16:38 Intake and Output: 02/05/17 02/05/17 06:59 18:59 Intake Total 540 Balance 540 - Medications Medications: Current Medications Alprazolam (Xanax) 2 mg PO BID PRN PRN Reason: Anxiety Last Admin: 02/05/17 05:37 Dose: 2 mg Benztropine Mesylate (Cogentin) 2 mg PO DAILY [facility] Last Admin: 02/05/17 10:00 Dose: 2 mg Fluoxetine HCl (Prozac) 40 mg PO DAILY [facility] Last Admin: 02/05/17 10:00 Dose: 40 mg Metronidazole (Flagyl) 500 mg in 100 mls @ 100 mls/hr IVPB Q8 [facility] PRN Reason: Protocol Last Admin: 02/05/17 13:27 Dose: 100 mls/hr Ceftriaxone Sodium (Rocephin 1 Gram Ivpb) 1 gm in 100 mls @ 100 mls/hr IVPB DAILY [facility] PRN Reason: Protocol Last Admin: 02/05/17 10:01 Dose: 100 mls/hr Dextrose/Sodium Chloride (Dextrose 5%/0.9% Ns 1000 Ml) 1,000 mls @ 100 mls/hr IV .Q10H [facility] Last Admin: 02/05/17 17:39 Dose: 100 mls/hr Oxycodone/Acetaminophen (Percocet 5/325 Mg Tab) 1 tab PO Q6H PRN PRN Reason: Pain, moderate (4-7) Stop: 02/07/17 11:13 Last Admin: 02/05/17 04:05 Dose: 1 tab Quetiapine Fumarate (Seroquel) 150 mg PO BID [facility] Last Admin: 02/05/17 17:34 Dose: 150 mg Venlafaxine HCl (Effexor Xr) 75 mg PO BID [facility] Last Admin: 09/09/17 17:34 Dose: 75 mg - Labs Labs: 02/05/17 07:00 02/05/17 07:00 PT 10.3 Seconds (9.9-11.8) 02/03/17 23:55 INR 0.95 (0.93-1.08) 02/03/17 23:55 APTT 27.9 Seconds (23.7-30.8) 02/03/17 23:55 - Constitutional Appears: Non-toxic, No Acute Distress - Head Exam Head Exam: NORMAL INSPECTION - ENT Exam ENT Exam: Mucous Membranes Moist - Neck Exam Neck Exam: absent: Meningismus - Respiratory Exam Respiratory Exam: Decreased Breath Sounds - Cardiovascular Exam Cardiovascular Exam: +S1, +S2 - GI/Abdominal Exam GI & Abdominal Exam: Soft. absent: Tenderness Assessment and Plan - Assessment and Plan (Free Text) Plan: Assessment Left sided colitis, etiology to be determined (R/O ischemic colitis, R/O c. diff. colitis) history of diverticulitis bipolar disorder history of alcohol abuse chronic back pain S/P appendectomy Plan continue Rocephin and Flagyl day 3; blood cx are negative; follow up stool cx, stool for C. diff., fecal leukocytes will continue to monitor clinically
--- NOTE | 2017-02-07 02:27 | PN ---
DATE: 02/05/2017 SUBJECTIVE: A 51 year-old female. The patient complaints of mild abdominal pain. Seen by Dr. Leroy. The patient was discussed with Dr. Leroy and the patient. The patient still complaints of pain, we will keep her n.p.o. except a liquid diet. We will give her liquid diet for now and we will see how she does. The patient does have thickening of the sigmoid colon. She never did a colonoscopy and she is scheduled for colonoscopy. No nausea, no vomiting, no fever. PHYSICAL EXAMINATION: VITAL SIGNS: As follows: Temperature 98.3, heart rate 84, blood pressure 115/69, respirations 20, saturating 100%. HEAD AND NECK: Normal. No JVD. No thyromegaly. CHEST: Clear. Good air entry. CARDIAC: First and second sound normal. ABDOMEN: Soft. There is tenderness in the left lower quadrant. EXTREMITIES: No edema. NEUROLOGICAL: Normal. LABORATORY DATA: Sodium 142, potassium 4.3, chloride 107, bicarbonate 27, BUN 11, creatinine 0.7. Liver function test is normal. CBC shows white count 7.1, hemoglobin 10.4, hematocrit 31.6, platelets 283. IMPRESSION AND PLAN: 1. Acute diverticulitis, colitis. Continue current IV antibiotics. We will give liquid diet. Continue current management. We will need more testing up to GI. The patient will need a colonoscopy. 2. Anemia. Another reason for colonoscopy, probably iron deficiency. 3. History of pharyngeal polyp. ENT was called and the patient advised to followup with ENT as outpatient. 4. Bipolar disorder. Orders to continue her medications. Continue current management. Castillo Ca MD
[2017-02-07] MEDS: Oxycodone/Acetaminophen 5/325 mg Tab PO PRN (05:11)
[2017-02-07] MEDS: metroNIDAZOLE IV 500 mg/100 ml 500 MG/100 ML BAG IVPB SCH (05:12)
--- NOTE | 2017-02-07 06:08 | HP ---
HISTORY OF PRESENT ILLNESS: The patient was admitted on 02/04/2017, with a complaint of abdominal pain. The patient is a 51-year-old female, who came into the hospital with abdominal pain. The patient does have also history of rectal bleeding in the past several times. We attempted to do colonoscopy several times, but she did not follow up. The patient denied any nausea, vomiting, fever, or chills. No bleeding at this time. The patient has severe significant lower abdominal pain. The patient was seen in the emergency room, had CT of the abdomen and pelvis, showed diverticulitis or colitis with thickening of the descending colon. PAST MEDICAL HISTORY: 1. She does have a history of bipolar disorder. 2. History of current lower GI bleed. 3. History of gastritis, pharyngeal polyps, need to follow up with an ENT. 4. History of multiple psych admissions. HOME MEDICATIONS: She takes Seroquel 150 b.i.d., Effexor XR 75 b.i.d., and Prozac 40 mg b.i.d., benztropine mesylate 2 mg p.o. daily, and Xanax 2 mg p.o. b.i.d. ALLERGIES: SHE HAS ALLERGIES TO HALDOL AND LAMOTRIGINE. SOCIAL HISTORY: She smokes less than 10 cigarettes; however, she smokes sometimes, most of the time before, she has smoked like a pack over a couple of days. Alcohol, no. Substance abuse, no. REVIEW OF SYSTEMS: She is noncompliant, but she does have abdominal pain, discomfort, anxiety disorders, otherwise negative. PHYSICAL EXAMINATION VITAL SIGNS: When she came in, her vital signs were stable. Temperature 97, heart rate 72, blood pressure 96/71, and respirations 18, saturating 94%. HEENT: Head and neck normal. No JVD. No thyromegaly. CHEST: Clear. Good air entry. CARDIAC: First sound and second sound normal. ABDOMEN: Abdomen is soft. There is tenderness in the left lower quadrant. EXTREMITIES: No edema. NEUROLOGIC: Normal. LABORATORY STUDIES: White count is 11.9, hemoglobin 12.1, hematocrit 36, platelets 306. Chemistry was in normal range. Sodium 140, potassium 4.3, chloride 107, bicarb 26, BUN 18, creatinine 3.9. Liver function test is normal. Amylase and lipase is normal. PT, PTT is normal. Urinalysis shows no white cells, but there is red blood cells. IMPRESSION: This is a 51-year-old female with abdominal pain, left lower quadrant tenderness, thickening of the colon on the CT. We will admit the patient for acute diverticulitis, acute colitis, put the patient on Flagyl and Levaquin and p.o. IV fluids. GI consult by Dr. Leroy. IV Protonix and resume her psych medications or follow up clinically, or continue current management. Also pain management, Percocet p.r.n. Castillo Ca MD
--- NOTE | 2017-02-07 07:01 | CON ---
DATE OF CONSULTATION: 02/06/2017. CONSULTING PHYSICIAN: Dr. Emre Newell. REQUESTING PHYSICIAN: Dr. Castillo Ca. REASON FOR CONSULTATION: Pharyngeal polyp. HISTORY OF PRESENT ILLNESS: This is a 51-year-old female, past medical history includes diverticulitis, bipolar disorder, history of alcohol abuse, chronic back pain, who was admitted to [facility] on 02/04 for abdominal pain and loose bowel movements. CT scan demonstrated a left-sided colitis, for which she is currently undergoing treatment. The patient, per the primary team, had an EGD performed several weeks ago which demonstrated a pharyngeal polyp, for which ear, nose and throat service has been consulted. Upon examination, the patient is awake, alert, oriented x3, in no acute distress, states that she knew about this pharyngeal polyp for several months but has not followed up with anybody. She denies any difficulty swallowing, pain with swallowing. She does state that she has had some changes in her voice on and off. Denies any difficulty breathing, shortness of breath or noisy breathing. She does admit to smoking history for some time. Otherwise, she denies other ear, nose, and throat complaints at this time. PAST MEDICAL HISTORY: Includes diverticulitis, bipolar disorder, alcohol abuse, chronic back pain. PAST SURGICAL HISTORY: Includes appendectomy. MEDICATIONS: Include Xanax, Cogentin, Prozac, Flagyl, Rocephin, Seroquel, and Effexor. SOCIAL HISTORY: She does admit to smoking about 10 cigarettes daily and occasional alcohol use. REVIEW OF SYSTEMS: Negative as per HPI. ALLERGIES: SHE IS ALLERGIC TO HALOPERIDOL AND LAMOTRIGINE. OBJECTIVE: VITAL SIGNS: Temperature 97.7, pulse rate 79, blood pressure 130/100, respiratory rate 20, oxygen 100% on room air. GENERAL: She is awake, alert, and oriented x3. No acute distress. HEENT: Head is atraumatic and normocephalic. Ears: External auricles unremarkable. Canals are clear. Tympanic membranes are bilaterally intact. Nose: From outside, there is no discharge, no epistaxis, no rhinorrhea noted. Oral cavity and oropharynx: Lips are unremarkable. Tongue is mobile and midline. Mucosa is moist. Uvula is midline. Palate is symmetrical. No masses or lesions noted in the oral cavity. No pharyngeal edema or erythema. NECK: Supple, nontender. No lymphadenopathy. Trachea is midline. LUNGS: Respirations are nonlabored. LABORATORY DATA: She has a white cell count of 7.1, hemoglobin 10.4, hematocrit 31.6. Sodium 142, potassium 4.3, chloride 102, carbon dioxide 27, AST 25, ALT 26. IMAGING: She has a CT of the abdomen and pelvis from 02/03/2017 demonstrating thickening of the descending colon. Procedure is direct fiber laryngoscopy after spraying the nose and the oral cavity with topical anesthetic , the direct fiberoptic laryngoscope was inserted into the patient's nasal passage and advanced under direct visualization. The nasal passages demonstrated normal mucosa. The nasopharynx was clear of masses and bilateral eustachian tubes. The posterior pharyngeal wall demonstrated no masses or lesions. The uvula was normal. At the base of the tongue on the left, there was a small polyp noted in the lingual tonsils. The epiglottis was crisp and normal in appearance. The postcricoid or arytenoid area of the glottic folds and the arytenoid demonstrated normal anatomy. False vocal cords and true vocal cords were free of lesions. Vocal cords approximated normally upon phonation. No masses or lesions in the pyriform sinus. Fiberoptic scope was removed under direct visualization. No acute events reported. ASSESSMENT AND PLAN: This is a 51-year-old female, medical history includes diverticulitis, bipolar disorder, alcohol abuse, back pain, who was admitted for diverticulitis and she had an esophagogastroduodenoscopy performed which showed a pharyngeal polyp. At this point, direct fiberoptic laryngoscopy demonstrates a small, less than a centimeter polyp in the base of the left tongue in the lingual tonsil. This looks benign in nature, but we will continue to follow her closely as an outpatient. The patient was provided the information to our office and was given phone number for her to contact us so that she can follow up once she is discharged from the hospital for routine monitoring. The remainder of the plan is as per the primary team. Thank you for allowing us to participate in this patient's care. Emre Newell DO
[2017-02-07] MEDS: Venlafaxine 75 mg ER Cap PO SCH ×2 (09:24→18:00)
[2017-02-07] MEDS: cefTRIAXone 1 gm 1 GM/100 ML BAG IVPB SCH (09:30)
--- NOTE | 2017-02-07 09:59 | PN ---
DATE: 02/06/2017 SUBJECTIVE: This patient was seen and evaluated earlier. The patient feels slightly better, still on liquid diet. PHYSICAL EXAMINATION VITAL SIGNS: Temperature is 97.7, pulse 79, blood pressure 138/100, respirations 20, O2 saturation 100%. HEENT: Atraumatic, anicteric. NECK: Supple. HEART: S1 and S2 heard. LUNGS: Bilateral air entry present. ABDOMEN: Soft. There was tenderness present in the left lower quadrant area and lumbar area. There is no rebound or guarding. EXTREMITIES: No edema, no cyanosis, no clubbing. LABORATORY DATA: No recent labs today. IMPRESSION: This is a 51-year-old patient, admitted with acute onset of diarrhea and abdominal pain. CT scan shows some significant focal thickening of the left colon. Rule out colitis, infectious versus inflammatory. Jos out neoplasia. The patient still continues to complaining of pain, on intravenous antibiotics. The patient never had a colonoscopy. RECOMMENDATIONS: We will continue to clear liquid diet. Continue the antibiotics. If the patient remains symptomatic, may consider the sigmoidoscopy to further evaluate. The patient is being also followed by the ENT for oropharyngeal polyp. Outpatient workup is recommended by the ENT. Thank you very much for allowing us to participate in the care of the patient. Gila Leroy MD
[2017-02-07] MEDS ORDERED: Peg-Electrolyte Oral Soln 4L (Golytely) PO ONE (14:00)
--- NOTE | 2017-02-07 14:06 | CP.PCM.PN ---
Subjective - Date & Time of Evaluation Date of Evaluation: 02/07/17 Time of Evaluation: 11:30 - Subjective Subjective: Comfortable, not in distress, afebrile, no more abdominal pain. Objective - Vital Signs/Intake and Output Vital Signs (last 24 hours): Temp Pulse Resp BP Pulse Ox 97.6 F 76 18 138/99 H 98 02/07/17 08:39 02/07/17 08:39 02/07/17 08:39 02/07/17 08:39 02/07/17 08:39 Intake and Output: 02/07/17 02/07/17 06:59 18:59 Intake Total 660 360 Balance 660 360 - Medications Medications: Current Medications Alprazolam (Xanax) 2 mg PO BID PRN PRN Reason: Anxiety Last Admin: 02/06/17 18:55 Dose: 2 mg Benztropine Mesylate (Cogentin) 2 mg PO DAILY [facility] Last Admin: 02/07/17 09:24 Dose: 2 mg Fluoxetine HCl (Prozac) 40 mg PO DAILY [facility] Last Admin: 02/07/17 09:23 Dose: 40 mg Metronidazole (Flagyl) 500 mg in 100 mls @ 100 mls/hr IVPB Q8 [facility] PRN Reason: Protocol Last Admin: 02/07/17 05:12 Dose: 100 mls/hr Ceftriaxone Sodium (Rocephin 1 Gram Ivpb) 1 gm in 100 mls @ 100 mls/hr IVPB DAILY [facility] PRN Reason: Protocol Last Admin: 02/06/17 10:02 Dose: 100 mls/hr Dextrose/Sodium Chloride (Dextrose 5%/0.9% Ns 1000 Ml) 1,000 mls @ 100 mls/hr IV .Q10H [facility] Last Admin: 02/06/17 02:37 Dose: Not Given Oxycodone/Acetaminophen (Percocet 5/325 Mg Tab) 1 tab PO Q6H PRN PRN Reason: Pain, moderate (4-7) Stop: 02/07/17 11:13 Last Admin: 02/07/17 05:11 Dose: 1 tab Quetiapine Fumarate (Seroquel) 150 mg PO BID [facility] Last Admin: 02/07/17 09:23 Dose: 150 mg Venlafaxine HCl (Effexor Xr) 75 mg PO BID [facility] Last Admin: 02/07/17 09:24 Dose: 75 mg - Labs Labs: 02/05/17 07:00 02/05/17 07:00 PT 10.3 Seconds (9.9-11.8) 02/03/17 23:55 INR 0.95 (0.93-1.08) 02/03/17 23:55 APTT 27.9 Seconds (23.7-30.8) 02/03/17 23:55 - Constitutional Appears: Non-toxic, No Acute Distress - Head Exam Head Exam: NORMAL INSPECTION - ENT Exam ENT Exam: Mucous Membranes Moist - Neck Exam Neck Exam: absent: Lymphadenopathy, Meningismus - Respiratory Exam Respiratory Exam: Decreased Breath Sounds - Cardiovascular Exam Cardiovascular Exam: +S1, +S2 - GI/Abdominal Exam GI & Abdominal Exam: Soft. absent: Tenderness Assessment and Plan - Assessment and Plan (Free Text) Plan: Assessment Left sided colitis, etiology to be determined (R/O ischemic colitis, R/O c. diff. colitis), clinically improved history of diverticulitis bipolar disorder history of alcohol abuse chronic back pain S/P appendectomy Plan on Rocephin and Flagyl day 4; blood cx are negative; when ready for discharge, she can be switched to PO Augmentin to complete the 7 days of therapy
--- NOTE | 2017-02-07 16:16 | CP.PCM.PN ---
<Sabra Ceja - Last Filed: 02/07/17 16:10> Subjective - Date & Time of Evaluation Date of Evaluation: 02/07/17 Time of Evaluation: 10:00 - Subjective Subjective: Seen and examined at the bedside earlier today. Denies nausea, vomiting, shortness of breath, or chest pain. Abdominal pain has some improvement. No acute overnight events reported. Objective - Vital Signs/Intake and Output Vital Signs (last 24 hours): Temp Pulse Resp BP Pulse Ox 97.6 F 86 18 138/99 H 98 02/07/17 08:39 02/07/17 10:00 02/07/17 08:39 02/07/17 08:39 02/07/17 08:39 Intake and Output: 02/07/17 02/07/17 06:59 18:59 Intake Total 660 360 Balance 660 360 - Medications Medications: Current Medications Alprazolam (Xanax) 2 mg PO BID PRN PRN Reason: Anxiety Last Admin: 02/07/17 14:21 Dose: 2 mg Amoxicillin/Clavulanate Potassium (Augmentin 875 Mg-125 Mg Tab) 1 tab PO Q12 [facility] PRN Reason: Protocol Benztropine Mesylate (Cogentin) 2 mg PO DAILY [facility] Last Admin: 02/07/17 09:24 Dose: 2 mg Fluoxetine HCl (Prozac) 40 mg PO DAILY [facility] Last Admin: 02/07/17 09:23 Dose: 40 mg Dextrose/Sodium Chloride (Dextrose 5%/0.9% Ns 1000 Ml) 1,000 mls @ 100 mls/hr IV .Q10H [facility] Last Admin: 02/06/17 02:37 Dose: Not Given Quetiapine Fumarate (Seroquel) 150 mg PO BID [facility] Last Admin: 02/07/17 09:23 Dose: 150 mg Venlafaxine HCl (Effexor Xr) 75 mg PO BID [facility] Last Admin: 02/07/17 09:24 Dose: 75 mg - Labs Labs: 02/05/17 07:00 02/05/17 07:00 PT 10.3 Seconds (9.9-11.8) 02/03/17 23:55 INR 0.95 (0.93-1.08) 02/03/17 23:55 APTT 27.9 Seconds (23.7-30.8) 02/03/17 23:55 - Constitutional Appears: No Acute Distress - Eye Exam Eye Exam: Normal appearance. absent: Scleral icterus - ENT Exam ENT Exam: Mucous Membranes Moist - Neck Exam Neck Exam: Normal Inspection - Respiratory Exam Respiratory Exam: Clear to Ausculation Bilateral, NORMAL BREATHING PATTERN. absent: Respiratory Distress - Cardiovascular Exam Cardiovascular Exam: +S1, +S2 - GI/Abdominal Exam GI & Abdominal Exam: Soft, Tenderness, Normal Bowel Sounds. absent: Guarding, Organomegaly, Rebound - Extremities Exam Extremities Exam: Normal Capillary Refill. absent: Calf Tenderness - Neurological Exam Neurological Exam: Alert, Awake, Oriented x3 Assessment and Plan - Assessment and Plan (Free Text) Assessment: Assessment: Acute onset of diarrhea and abdominal pain, status post CT scan with significant thickening of left colon Rule out colitis, infectious versus ischemic, inflammatory. Rule out neoplasia. Oropharyngeal polyp Anemia Bipolar disorder Plan: Continue IV antibiotics plan for colonoscopy tomorrow, discussed with patient who agrees. Continue clear liquid diet GoLYTELY at 2 PM, see orders Nothing by mouth after 12 midnight except meds CBC and CMP in a.m. Seen and discussed with Dr. Leroy <Gila Leroy V - Last Filed: 02/07/17 23:20> Objective - Vital Signs/Intake and Output Vital Signs (last 24 hours): Temp Pulse Resp BP Pulse Ox 97.5 F L 70 20 146/92 H 97 02/07/17 16:00 02/07/17 16:00 02/07/17 16:00 02/07/17 16:00 02/07/17 16:00 Intake and Output: 02/07/17 02/08/17 18:59 06:59 Intake Total 360 420 Balance 360 420 - Medications Medications: Current Medications Alprazolam (Xanax) 2 mg PO BID PRN PRN Reason: Anxiety Last Admin: 02/07/17 14:21 Dose: 2 mg Amoxicillin/Clavulanate Potassium (Augmentin 875 Mg-125 Mg Tab) 1 tab PO Q12 [facility] PRN Reason: Protocol Last Admin: 02/07/17 21:14 Dose: 1 tab Benztropine Mesylate (Cogentin) 2 mg PO DAILY [facility] Last Admin: 02/07/17 09:24 Dose: 2 mg Fluoxetine HCl (Prozac) 40 mg PO DAILY [facility] Last Admin: 02/07/17 09:23 Dose: 40 mg Dextrose/Sodium Chloride (Dextrose 5%/0.9% Ns 1000 Ml) 1,000 mls @ 100 mls/hr IV .Q10H [facility] Last Admin: 02/06/17 02:37 Dose: Not Given Quetiapine Fumarate (Seroquel) 150 mg PO BID [facility] Last Admin: 02/07/17 18:00 Dose: 150 mg Venlafaxine HCl (Effexor Xr) 75 mg PO BID [facility] Last Admin: 02/07/17 18:00 Dose: 75 mg - Labs Labs: 02/05/17 07:00 02/05/17 07:00 PT 10.3 Seconds (9.9-11.8) 02/03/17 23:55 INR 0.95 (0.93-1.08) 02/03/17 23:55 APTT 27.9 Seconds (23.7-30.8) 02/03/17 23:55 Attending/Attestation - Attestation I have personally seen and examined this patient.: Yes I have fully participated in the care of the patient.: Yes I have reviewed all pertinent clinical information, including history, physical exam and plan: Yes Notes (Text): This patient was seen and evaluated earlier. This is an addendum to the GI consultation report dictated by Sabra Ceja APN. Increase abdominal discomfort has improved. On examination patient still has some tenderness in the left side of the abdomen. The patient is very concerned because of the bleeding. CT also revealed a focal thickening in the left colon. Differential diagnosis should include a colitis ischemic versus inflammatory cannot rule out any neoplasia patient is poorly cooperative with follow-up .The patient was very reluctant for colonoscopies in the past Would schedule the patient for colonoscopy evaluation in a.m. 02/07/17 23:17
[2017-02-07] MEDS: Amoxicillin-Clav 875-125 mg Tab PO SCH (21:14)
[2017-02-08 06:51] LABS: BASO # 0.04 K/mm3 (0.0-2.0); BASO % 0.5 % (0.0-3.0); EOS # 0.4 (0.0-0.7); EOS % 4.3 % (1.5-5.0); GRAN # 3.45 (1.4-6.5); GRAN % 42.3 % (50.0-68.0); HEMATOCRIT 34.5 % (36.0-48.0); LYMPH # 3.6 (1.2-3.4); LYMPH % 44.2 % (22.0-35.0); MEAN CELL VOLUME 90.6 fl (80.0-105.0); MEAN CORPUSCULAR HEMOGLOBIN 30.2 pg (25.0-35.0); MEAN CORPUSCULAR HGB CONC 33.3 g/dl (31.0-37.0); MEAN PLATELET VOLUME 9.4 fl (7.0-11.0); MONO # 0.7 (0.1-0.6); MONO % 8.7 % (1.0-6.0); RED CELL DISTRIBUTION WIDTH 13.4 % (11.5-14.5); WHITE BLOOD COUNT 8.2 10^3/ul (4.5-11.0)
[2017-02-08 07:08] LABS: ALB/GLOB RATIO 1.3 (1.1-1.8); ALKALINE PHOSPHATASE 86 U/L (38-126); ALT/SGPT 38 U/L (7-56); AST/SGOT 42 U/L (14-36); BILIRUBIN,TOTAL 0.6 mg/dL (0.2-1.3); BLOOD UREA NITROGEN 5 mg/dL (7-21); CALCIUM 9.2 mg/dL (8.4-10.5); CARBON DIOXIDE 32 mmol/L (21-33); CHLORIDE 103 mmol/L (98-107); GFR AFRICAN-AMERICAN > 60; GLUCOSE,RANDOM 81 mg/dL (70-110); POTASSIUM 4.4 mmol/L (3.6-5.0); SODIUM 142 mmol/L (132-148)
[2017-02-08] MEDS: Dextrose 5%/0.9% NS 1,000 ML IV SCH (07:56)
--- NOTE | 2017-02-08 08:50 | PN ---
DATE: 02/07/2017 SUBJECTIVE: A 51-year-old female, came in with abdominal pain, found to have diverticulitis. The patient is currently on IV antibiotics, going for colonoscopy in the morning and she is being prepared with GoLYTELY. The patient seems stable. No chest pain, no short of breath, seen by GI, Dr. Leroy. PHYSICAL EXAMINATION VITAL SIGNS: Temperature 97.5, heart rate 70, blood pressure 146/92, respirations 20, saturation 97%. HEAD AND NECK: Normal. No JVD. No thyromegaly. CHEST: Clear. Good air entry. CARDIAC: First sound and second sound normal. ABDOMEN: Soft. There is tenderness in the lower abdomen. EXTREMITIES: No edema. NEUROLOGICAL: Normal. LABORATORY STUDIES: White count 7.1, hemoglobin 10.4, hematocrit 31.6, platelets 283. Chemistry; sodium 142, potassium 4.3, chloride 107, bicarb 27, BUN 11, creatinine 0.7. Liver function test is normal. IMPRESSION AND PLAN: 1. Mild colitis. The patient is being prepared for colonoscopy. She never had any colonoscopy in the past. Dr. Leroy discussed with the patient to go for colonoscopy and finally she will do it. She did have several prescriptions to follow up with the patient for colonoscopy, but she never went. This time, she is in the hospital, she seems stable, we are currently getting prepped with GoLYTELY for colonoscopy in the morning. 2. Bipolar disorder, seems stable. Continue her psych medicines. She is taking Seroquel, Prozac, Effexor, Cogentin and Xanax. Continue current treatment. An old followup in the morning. 3. Hypertension, it is mild. We will continue may be anxiety, low-salt diet. We will monitor her blood pressure. 4. The patient does have mild anemia. She did have EGD. She did have pharyngeal polyps. We asked for an ENT consult by Dr. Newell to look at the pharyngeal polyps and follow his recommendations. Continue current treatments. Castillo Ca MD
[2017-02-08] MEDS: Venlafaxine 75 mg ER Cap PO SCH (09:26)
[2017-02-08] MEDS: Oxycodone/Acetaminophen 5/325 mg Tab PO PRN ×2 (09:27→16:58)
[2017-02-08] MEDS: Amoxicillin-Clav 875-125 mg Tab PO SCH (09:31)
--- NOTE | 2017-02-08 14:24 | PN ---
DATE: 02/08/2017 SUBJECTIVE: The patient is seen in bed, in no acute distress, was seen earlier at 378. PHYSICAL EXAMINATION VITAL SIGNS: Temperature is 97, blood pressure is 130/90, respiratory rate of 20, and heart rate of 70. HEENT: Examination of HEENT is unremarkable. NECK: Supple. RESPIRATORY: Lungs have decreased breath sounds. HEART: Normal S1 and S2. ABDOMEN: Soft and nontender. LABORATORY EXAMINATION: Examination reveals a white count of 8.2, hemoglobin of 11, and platelets of 320. Chemistries are noted. BUN of 5 and creatinine of 0.7. Urinalysis is noted. Microbiology reveals the blood cultures are negative. Urine cultures are negative. Review of orders reveals the patient to be on p.o. Augmentin. ASSESSMENT AND PLAN: This is a 51-year-old female seen earlier today with left-sided colitis, etiology is unclear, ischemic versus pseudomembranous colitis, clinically now has resolved with history of diverticulitis, bipolar and alcohol abuse, chronic back pain, and history of appendectomy. Now on p.o. Augmentin to complete 7 days of therapy, today is day number 5. Brett Mckeon MD
[2017-02-08 14:30] VITALS: TEMP 97.8
[2017-02-08] MEDS ORDERED: Propofol 10 mg/ml Inj (20 ML) ONE (14:44)
[2017-02-08] MEDS ORDERED: Sodium Chloride 0.9% 1,000 ML IV SCH (15:30)
[2017-02-08 15:59] VITALS: O2SAT 100
[2017-02-08 16:19] VITALS: BP 150/88; PULSE 70; RESP 16
--- NOTE | 2017-02-10 05:16 | DS ---
HISTORY OF PRESENT ILLNESS: The patient admitted with abdominal pain, mild colitis on the CT scan and thickening the wall of the colon, Dr. Leroy, GI consult seeing the patient. She did get Flagyl and Levaquin, IV antibiotics, and on the day of discharge switched to p.o. Augmentin. The patient also had recommended colonoscopy, which is done by Dr. Leroy to evaluate the colon. According to the report, no evidence of cancer. The patient was discharged home to be followed up as an outpatient. The patient does have a history of bipolar disorder. She is mentally stable and she has no nausea or vomiting or any bleeding disorder. LABORATORY STUDIES: White count 8.2, hemoglobin 11.5, hematocrit 34.2, and platelet 320. Chemistry; sodium 142, potassium 4.4, chloride 102, bicarbonate 32, BUN 5, and creatinine 0.7. Blood and liver function tests within normal range. The patient also had urine test, which was negative. IMPRESSION AND PLAN: 1. Acute colitis, mild. Continue low-residue diet and p.o. Augmentin. 2. Mild urinary tract infection, stable. 3. Bipolar disorder. 4. Mild anemia. 5. Overweight. The patient advised to continue followup as an outpatient within a week and to see Dr. Leroy for followup. 6. The patient has pharyngeal polyps on the previous esophagogastroduodenoscopy, recommended ENT evaluations, Dr. Newell has been called in and the patient was advised to follow up with him. The patient was seen by Dr. Newell as a consultation and his recommendation that there is a small polyp at the base of the tongue less than 1 cm, it looks benign in nature, but he need to be followup closely as an outpatient. The patient understand that. She has a number of his office and we will followup with her as an outpatient. Castillo Ca MD
== END 2017-02-08 18:00 | disposition home or self-care (01) | DRG 386 ==
LOC: ED 22:38 → ERH 02-04 03:55 → 3RSO 02-04 05:58
PROVIDERS: ADMIT Internal Medicine; ATTEND Internal Medicine
PROC: 0DBE8ZX Excision of Large Intestine, Via Natural or Artificial Opening Endoscopic, Diagnostic (ICD-10-PCS; 2017-02-08)
PROC: 0DBP8ZX Excision of Rectum, Via Natural or Artificial Opening Endoscopic, Diagnostic (ICD-10-PCS; 2017-02-08)
PROC: 0DBB8ZX Excision of Ileum, Via Natural or Artificial Opening Endoscopic, Diagnostic (ICD-10-PCS; principal; 2017-02-08 13:45)
DX: K51.50 Left sided colitis without complications (principal); K57.32 Diverticulitis of large intestine without perforation or abscess without bleeding; N39.0 Urinary tract infection, site not specified; F31.9 Bipolar disorder, unspecified; K29.70 Gastritis, unspecified, without bleeding; K21.9 Gastro-esophageal reflux disease without esophagitis; G89.29 Other chronic pain; M54.9 Dorsalgia, unspecified; D64.9 Anemia, unspecified; E66.3 Overweight; Z68.26 Body mass index [BMI] 26.0-26.9, adult; F41.9 Anxiety disorder, unspecified; K64.8 Other hemorrhoids; F17.210 Nicotine dependence, cigarettes, uncomplicated; Z90.49 Acquired absence of other specified parts of digestive tract

== ENCOUNTER 2017-04-10 13:17 | Inpatient (IN) | payer MEDICARE, OTHER ==
[2017-04-10] MEDS ORDERED: NOREPINEPHRINE BIT/0.9 % NACL 4 MG/250 ML BAG IV ONE ×2 (13:40→16:05)
[2017-04-10] MEDS ORDERED: Sodium Chloride 0.9% 1,000 ML IV ONE (13:46)
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
[2017-04-10] MEDS ORDERED: Sodium Chloride 0.9% 1,000 ML IV STA ×2 (14:08→14:09)
[2017-04-10 14:09] LABS: VENOUS BLOOD PH < 6.80 (7.32-7.43)
[2017-04-10 14:10] LABS: BASO # 0.02 K/mm3 (0.0-2.0); BASO % 0.1 % (0.0-3.0); EOS % 0.1 % (1.5-5.0); GRAN # 7.78 (1.4-6.5); GRAN % 54.2 % (50.0-68.0); HEMATOCRIT 38.1 % (36.0-48.0); LYMPH # 4.5 (1.2-3.4); LYMPH % 31.1 % (22.0-35.0); MEAN CELL VOLUME 98.7 fl (80.0-105.0); MEAN CORPUSCULAR HEMOGLOBIN 30.3 pg (25.0-35.0); MEAN CORPUSCULAR HGB CONC 30.7 g/dl (31.0-37.0); MEAN PLATELET VOLUME 10.8 fl (7.0-11.0); MONO # 2.1 (0.1-0.6); MONO % 14.5 % (1.0-6.0); PLATELET COUNT 344 10^3/uL (120.0-450.0); RED CELL DISTRIBUTION WIDTH 14.4 % (11.5-14.5); URINE BILIRUBIN NEGATIVE (NEGATIVE); URINE BLOOD NEGATIVE (NEGATIVE); URINE GLUCOSE (UA) NEGATIVE (NEGATIVE); URINE KETONE NEGATIVE (NEGATIVE); URINE LEUKOCYTE ESTERASE NEGATIVE Leu/uL (NEGATIVE); URINE PROTEIN TRACE mg/dL (<30 mg/dL); URINE UROBILINOGEN 0.2 E.U./dL (<1 E.U./dL); WHITE BLOOD COUNT 14.4 10^3/ul (4.5-11.0)
[2017-04-10 14:11] LABS: URINE APPEARANCE CLEAR (CLEAR); URINE COLOR YELLOW (YELLOW)
[2017-04-10] MEDS ORDERED: Vancomycin 1gm in NS 250ml 250 ML IVPB STA (14:12)
[2017-04-10] MEDS ORDERED: Cefepime IV 2 gm in NS 100 ML IVPB STA (14:12)
[2017-04-10] MEDS ORDERED: Sodium Bicarbonate (8.4%) 50 Meq Syringe IVP ONE ×2 (14:14→18:30)
[2017-04-10] MEDS ORDERED: Vancomycin 1gm in NS 250ml 1 GM/250 ML BAG IVPB STA (14:17)
[2017-04-10] MEDS ORDERED: Cefepime IV 2 gm in NS 2 GM/100 ML BAG IVPB STA (14:17)
[2017-04-10] MEDS ORDERED: Naloxone 0.4 mg/ml Inj (Adult) IVP STA (14:20)
[2017-04-10 14:23] LABS: INR 1.28 (0.93-1.08); PARTIAL THROMBOPLASTIN TIME 35.5 Seconds (25.1-36.5)
[2017-04-10 14:29] LABS: URINE BACTERIA NEG (NEG); URINE EPITHELIAL CELLS 0 - 2 /hpf (0-5); URINE RBC 0 - 2 /hpf (0-2); URINE WBC 0 - 2 /hpf (0-6)
--- NOTE | 2017-04-10 14:52 | RAD ---
HISTORY: Sepsis Patient COMPARISON: Comparison is made to 07/23/2016 FINDINGS: LUNGS: Interval appearance of focal heterogeneous opacity at the right upper lobe may represent a pneumonia. The ET tube is seen at appropriate position. Heterogeneous small opacity seen at the right perihilar region. PLEURA: No significant pleural effusion identified, no pneumothorax apparent. CARDIOVASCULAR: Normal. OSSEOUS STRUCTURES: No significant abnormalities. VISUALIZED UPPER ABDOMEN: Normal. OTHER FINDINGS: None. IMPRESSION: Heterogeneous opacity at the right upper lobe suspicious for pneumonia. Appropriate position of the ETT.
[2017-04-10 14:53] LABS: ARTERIAL BLOOD GAS HCO3 10.4 mmol/L (21-28); ARTERIAL BLOOD GAS O2 CAPACITY 13.4 mL/dl (16-24); ARTERIAL BLOOD GAS O2 CONTENT 13.5 ML/dl (15-23); ARTERIAL BLOOD HGB O2 SAT 96.7 % (95.0-98.0); CARBOXYHEMOGLOBIN 2.6 % (0.5-1.5); HHB -0.4 % (0-5); METHEMOGLOBIN 1.2 % (0.0-3.0)
[2017-04-10 15:00] LABS: BILIRUBIN,TOTAL 0.9 mg/dL (0.2-1.3); MAGNESIUM 2.5 mg/dL (1.7-2.2); TOTAL PROTEIN 5.9 g/dL (5.8-8.3)
[2017-04-10] MEDS: NOREPINEPHRINE BIT/0.9 % NACL 4 MG/250 ML BAG IV PRN ×5 (15:06→20:26)
[2017-04-10 15:13] LABS: PHOSPHOROUS 13.4 mg/dL (2.5-4.5)
[2017-04-10 15:22] LABS: CALCIUM 6.8 mg/dL (8.4-10.5)
[2017-04-10 15:25] LABS: TROPONIN I 0.51 ng/mL
[2017-04-10] MEDS ORDERED: Dextrose 50% SYRINGE Inj (50 ml) IVP STA (15:25)
[2017-04-10] MEDS ORDERED: Sod Polystyrene Sulf 15 gm/60 ml Susp PO STA (15:26)
[2017-04-10] MEDS: Sodium Chloride 0.9% 1,000 ML IV SCH (15:40)
[2017-04-10] MEDS ORDERED: DOPamine 400mg/250ml D5W 400 MG/250 ML BAG IV PRN (15:52)
[2017-04-10 16:12] LABS: POTASSIUM 6.3 mmol/L (3.6-5.0)
[2017-04-10 16:35] VITALS: BMI 36.3
[2017-04-10] MEDS ORDERED: EPINEPHrine- 1 MG in Sodium Chloride 0.9% 50 ML IV PRN (16:43)
--- NOTE | 2017-04-10 17:28 | CT ---
PROCEDURE: CT HEAD WITHOUT CONTRAST. HISTORY: AMS COMPARISON: Comparison is made to the previous study dated 04/06/2017 TECHNIQUE: Axial computed tomography images were obtained through the head/brain without intravenous contrast. Radiation dose: Total exam DLP = 726.57 mGy-cm. This CT exam was performed using one or more of the following dose reduction techniques: Automated exposure control, adjustment of the mA and/or kV according to patient size, and/or use of iterative reconstruction technique. FINDINGS: HEMORRHAGE: No intracranial hemorrhage. BRAIN: There is a diffuse decreased attenuation of the brain parenchyma with effacement of the trejo-white matter differentiation and diffuse effacement of the sulci. The ventricles are small in size. Findings are suggestive of increased intracranial pressure and diffuse brain edema VENTRICLES: The ventricles including the 4th ventricle are small in size. . CALVARIUM: Unremarkable. PARANASAL SINUSES: Unremarkable as visualized. No significant inflammatory changes. MASTOID AIR CELLS: Unremarkable as visualized. No inflammatory changes. OTHER FINDINGS: None. IMPRESSION: Diffuse decreased attenuation of the brain parenchyma and loss of the trejo-white matter differentiation associated with small size ventricles and diffuse effacement of the sulci suggestive of diffuse brain edema and increased intracranial pressure. The differential diagnosis includes severe hypoxia or severe brain injury.
--- NOTE | 2017-04-10 17:34 | CT ---
PROCEDURE: CT Cervical Spine without contrast HISTORY: Unresponsive rule out fracture. COMPARISON: None available. TECHNIQUE: Axial computed tomography images were obtained of the cervical spine without the use of intravenous contrast. Coronal and sagittal reformatted images were created and reviewed. Radiation dose: Total exam DLP = 567.83 mGy-cm. This CT exam was performed using one or more of the following dose reduction techniques: Automated exposure control, adjustment of the mA and/or kV according to patient size, and/or use of iterative reconstruction technique. FINDINGS: VERTEBRAE: No fracture. Normal alignment. No destructive bony lesion. DISCS/SPINAL CANAL/NEURAL FORAMINA: Mild degenerative disc changes noted at the lower cervical spine associated with mild spinal and neural foraminal narrowing at C5-C6 level. Discs heights are grossly preserved. PARASPINAL SOFT TISSUES: The patient is status post intubation and NG tube insertion therefore cannot evaluate the prevertebral soft tissue. OTHER FINDINGS: Patchy small opacities are noted in the lungs may represent aspiration. IMPRESSION: No evidence of acute fracture or subluxation.
[2017-04-10 18:12] LABS: BAND 5 % (0-2); CORRECTED WBC 13.6 K/mm3 (4.5-11.0); NEUTROPHIL 41 % (50.0-70.0); NUCLEATED RED BLOOD CELL 6 %
[2017-04-10 18:26] LABS: VENOUS BLOOD PH 6.94 (7.32-7.43)
[2017-04-10] MEDS ORDERED: Sodium Bicarbonate (8.4%) 50 Meq Syringe ONE (18:38)
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
[2017-04-10] MEDS: SODIUM CHLORIDE 0.9% IV PRN (20:00)
[2017-04-10] MEDS: EPINEPHRINE IV PRN (20:00)
[2017-04-10 20:41] LABS: ARTERIAL BLOOD GAS HCO3 13.5 mmol/L (21-28)
[2017-04-10 20:44] LABS: ARTERIAL BLOOD GAS PH 6.99 (7.35-7.45)
[2017-04-10 22:43] LABS: VENOUS BLOOD GAS BASE EXCESS -18.8 mmol/L (0.0-2.0)
[2017-04-10] MEDS ORDERED: Sodium Bicarbonate 8.4% 150 MEQ in Dextrose 5% In Water 1,000 ML IV SCH (22:45)
[2017-04-10 23:16] LABS: VENOUS BLOOD PH 7.04 (7.32-7.43)
[2017-04-11] MEDS: Sodium Chloride 0.9% 1,000 ML IV SCH ×2 (01:15→19:45)
[2017-04-11 02:01] LABS: VENOUS BLOOD GAS BASE EXCESS -15.1 mmol/L (0.0-2.0)
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
[2017-04-11 06:35] LABS: BASO # 0.01 K/mm3 (0.0-2.0); MEAN CELL VOLUME 94.4 fl (80.0-105.0); RED CELL DISTRIBUTION WIDTH 14.5 % (11.5-14.5)
[2017-04-11 06:43] LABS: ARTERIAL BLOOD GAS HCO3 15.3 mmol/L (21-28); ARTERIAL BLOOD GAS O2 CAPACITY 9.9 mL/dl (16-24); ARTERIAL BLOOD HGB O2 SAT 68.8 % (95.0-98.0); CARBOXYHEMOGLOBIN 1.6 % (0.5-1.5); HHB 28.9 % (0-5); METHEMOGLOBIN 0.7 % (0.0-3.0)
[2017-04-11 06:44] LABS: ARTERIAL BLOOD GAS PH 7.17 (7.35-7.45)
[2017-04-11 06:46] LABS: ALB/GLOB RATIO 0.9 (1.1-1.8); BILIRUBIN,TOTAL 1.6 mg/dL (0.2-1.3); MAGNESIUM 1.6 mg/dL (1.7-2.2); PHOSPHOROUS 2.5 mg/dL (2.5-4.5); TOTAL PROTEIN 4.5 g/dL (5.8-8.3)
[2017-04-11 07:01] LABS: INR 2.13 (0.93-1.08)
[2017-04-11 07:34] LABS: CALCIUM 6.4 mg/dL (8.4-10.5)
[2017-04-11 08:16] LABS: BASO % 0.2 % (0.0-3.0); EOS % 0.2 % (1.5-5.0); GRAN # 2.38 (1.4-6.5); GRAN % 55.4 % (50.0-68.0); HEMATOCRIT 28.7 % (36.0-48.0); LYMPH # 1.6 (1.2-3.4); MEAN CORPUSCULAR HEMOGLOBIN 30.3 pg (25.0-35.0); MEAN CORPUSCULAR HGB CONC 32.1 g/dl (31.0-37.0); MEAN PLATELET VOLUME 9.9 fl (7.0-11.0); MONO # 0.3 (0.1-0.6); MONO % 7.2 % (1.0-6.0); WHITE BLOOD COUNT 4.3 10^3/ul (4.5-11.0)
--- NOTE | 2017-04-11 08:38 | RAD ---
HISTORY: intubated COMPARISON: 04/10/2017 FINDINGS: LUNGS: There is a new diffuse alveolar infiltrate. The endotracheal tube is in satisfactory position PLEURA: No significant pleural effusion identified, no pneumothorax apparent. CARDIOVASCULAR: Normal. OSSEOUS STRUCTURES: No significant abnormalities. VISUALIZED UPPER ABDOMEN: Normal. OTHER FINDINGS: None. IMPRESSION: There is a new diffuse alveolar infiltrate. The endotracheal tube is in satisfactory position
[2017-04-11 09:04] LABS: TROPONIN I 1.97 ng/mL
[2017-04-11] MEDS ORDERED: Albumin Human 25% (12.5 gm/50 ml) IV ONE ×2 (09:10→10:10)
--- NOTE | 2017-04-11 10:14 | CARD ---
APPROVED REPORT EKG Measurement Heart [id number] CO 168P [id number] <Conclusion> Sinus tachycardia Nonspecific ST abnormality Abnormal ECG
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
[2017-04-11] MEDS ORDERED: Vancomycin 1gm in NS 250ml 1 GM/250 ML BAG IVPB SCH (10:30)
[2017-04-11] MEDS ORDERED: Cefepime 1gm in NS 100ml 1 GM/100 ML BAG IVPB SCH ×2 (10:30→11:53)
--- NOTE | 2017-04-11 10:41 | CP.PCM.PN ---
<Patricia Vizcaino - Last Filed: 04/11/17 18:37> Subjective - Date & Time of Evaluation Date of Evaluation: 04/11/17 Time of Evaluation: 09:00 - Subjective Subjective: Medicine progress note for Dr. Simon Patient seen and examined at bedside. Patient is unresponsive to tactile stimuli , pupils non reactive, no cough, no gag, no corneal reflex. No spontaneous movement. Pulses dopplerable, not palpable. Objective - Vital Signs/Intake and Output Vital Signs (last 24 hours): Temp Pulse Resp BP Pulse Ox 95.4 F L 110 H 20 126/90 77 L 04/11/17 04:00 04/11/17 07:03 04/11/17 07:03 04/11/17 06:31 04/11/17 06:50 Intake and Output: 04/11/17 04/11/17 06:59 18:59 Intake Total 3773 258 Output Total 0 Balance 3773 258 - Medications Medications: Current Medications Hydrocortisone Sodium Succinate (Solu-Cortef) 50 mg IVP Q8 BETSEY Sodium Chloride (Sodium Chloride 0.9%) 1,000 mls @ 100 mls/hr IV .Q10H BETSEY Last Admin: 04/11/17 01:15 Dose: 100 mls/hr Vasopressin 20 units/ Sodium (Chloride) 101 mls @ 9.09 mls/hr IV .Q11H7M BETSEY; 0.03 U/MIN PRN Reason: Protocol Last Admin: 04/11/17 01:15 Dose: 9.09 mls/hr Epinephrine HCl 2 mg/ Sodium (Chloride) 102 mls @ 3.06 mls/hr IV .Q24H PRN; Protocol; 1 MCG/MIN PRN Reason: TITRATE PER MD ORDER Last Admin: 04/10/17 20:00 Dose: 1 mcg/min, 3.06 mls/hr Norepinephrine Bitartrate 8 mg (/ Sodium Chloride) 258 mls @ 94.81 mls/hr IV .Q2H44M BETSEY; 49 MCG/MIN PRN Reason: Protocol Last Admin: 04/11/17 08:40 Dose: 40 mcg/min, 77.4 mls/hr Sodium Bicarbonate 150 meq/ (Dextrose) 1,150 mls @ 100 mls/hr IV .[id number] BETSEY Last Admin: 04/11/17 08:40 Dose: 100 mls/hr Cefepime HCl (Maxipime 1gm) 1 gm in 100 mls @ 100 mls/hr IVPB Q12 BETSEY PRN Reason: Protocol Vancomycin HCl (Vancomycin 1gm) 1 gm in 250 mls @ 167 mls/hr IVPB DAILY BETSEY PRN Reason: Protocol Pantoprazole Sodium (Protonix Inj) 40 mg IVP Q12 [facility] Last Admin: 04/11/17 09:54 Dose: 40 mg - Labs Labs: 04/11/17 06:00 04/11/17 06:00 PT 23.8 SECONDS (9.4-12.5) H 04/11/17 06:00 INR 2.13 (0.93-1.08) H 04/11/17 06:00 APTT 26.0 Seconds (25.1-36.5) 04/11/17 06:00 - Constitutional Appears: Chronically Ill - Head Exam Additional comments: Ecchymosis to left forehead - Eye Exam Eye Exam: absent: Conjunctival injection, Scleral icterus Pupil Exam: Fixed (6mm nonreactive to light. No corenal reflex.). absent: PERRL - ENT Exam ENT Exam: Mucous Membranes Dry - Respiratory Exam Respiratory Exam: Decreased Breath Sounds (vent sounds heard throughout) - Cardiovascular Exam Cardiovascular Exam: REGULAR RHYTHM, +S1, +S2 - GI/Abdominal Exam GI & Abdominal Exam: Soft. absent: Distended, Firm, Rigid - Extremities Exam Additional comments: nonpalpable distal LE pulses - Neurological Exam Neurological Exam: absent: Alert, Awake Additional comments: no response to painful stimulti - Skin Skin Exam: Intact Assessment and Plan - Assessment and Plan (Free Text) Assessment: 51yo female presents with cardiopulmonary arrest Plan: S/p on field cardiac arrest - Admitted to ICU, unknown whether possible overdose given history provided - Found to have opiates, benzos, and alcohol on workup - Intubated, PRVC 360/14 PEEP/100%FiO2 - Elevated troponins s/p cardiac arrest with ROSC after ACLS for approx 30-40 mins - On Pressors: NE, Vasopressin, Epi. Maintain MAP >65 - f/u Echo - Cardiology following Ventilator dependent respiratory failure - CXR - suspicious for ARDS - Intubated, PRVC 360/14 PEEP/100%FiO2 - monitoring ABGs - HOB elevated 30 Altered Mental Status - likely anoxic brain injury - pupils nonreactive, fixed - EEG - Evidence of likely brain - Neck CT showed no fractures - Head CT shows brain edema, likely from anoxic injury due to arrest - patient unresponsive, not on sedation - will perform apnea test - stress dose steroids: Solucortef 50mg q8 - Neuro Dr. Alexandra following JOHN - IV hydration - nephrotoxic agents on hold - Utox: + benzos/ opiates/ alcohol - Nephro Dr. Reardon following Transaminitis - likely 2/2 hypotension/cardiac arrest causing ischemia/ shock liver - NPO Electrolyte imbalances - 2/2 cardiac arrest and CPR - Monitor closely Leukocytosis - Blood culture: gram + cocci - f/u urine culture - Abx: vanc and cefepime - ID Dr. Raymundo following GI/DVT ppx: protonix/SCDs Consult: Palliative care Code status: DNR Case discussed with Dr. Alfred Vizcaino PGY2 <Willy Simon - Last Filed: 04/12/17 16:43> Objective - Vital Signs/Intake and Output Vital Signs (last 24 hours): Temp Pulse Resp BP Pulse Ox 103.2 F H 116 H 24 174/35 H 81 L 04/12/17 00:00 04/12/17 03:31 04/12/17 04:00 04/12/17 03:31 04/12/17 03:57 Intake and Output: 04/12/17 04/12/17 06:59 18:59 Intake Total 2347 Output Total 50 Balance 2297 - Labs Labs: 04/11/17 06:00 04/11/17 06:00 PT 23.8 SECONDS (9.4-12.5) H 04/11/17 06:00 INR 2.13 (0.93-1.08) H 04/11/17 06:00 APTT 26.0 Seconds (25.1-36.5) 04/11/17 06:00 Attending/Attestation - Attestation I have personally seen and examined this patient.: Yes I have fully participated in the care of the patient.: Yes I have reviewed all pertinent clinical information, including history, physical exam and plan: Yes Notes (Text): 04/12/17 16:39 attending note; Patient seen and examined with resident in ICU. patient is admitted post cardiac arrest. Down time not known. history is unknown. Patient is intubated. On multiple pressors. Patient is not sedated. Pupils fixed and dilated. In multiorgan failure.Worsening renal/liver failure. EEG is abnormal consistent with possible brain . Neurology evaluation appreciated. administration manager/clinical social work aide evaluation appreciated. Patient is DNR. Prognosis is extremely poor. family aware of the prognosis.
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
--- NOTE | 2017-04-11 11:50 | PCM.EEG ---
Electroencephalogram Report - Electroencephalogram Report Procedure Date: 04/11/17 Interpretation: Indication: question of brain . Medications were reviewed. Technical: This is a digitally recorded electroencephalogram. The international 10-20 electrode placement system is used for scalp electrode placement. Eighteen channels of scalp EEG are recorded The data are stored digitally and reviewed in reformatted montages for optimal display. Diffuse Abnormality: No well formed alpha activity was seen. Markedly suppressed EEG activity was observed. There was no background rhythm, and the EEG activity was flat. Impression: This EEG is abnormal. This EEG is markedly suppressed and is consistent with the clinical history of likely brain .
--- NOTE | 2017-04-11 12:43 | CP.CCUPN ---
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 (3.6-5.2) mmol/L Venous Blood Potassium (3.6-5.2) mmol/L HIV 1&2 Ag/Ab, 4th Gen (Nonreactive) Laboratory Results - last 24 hr 04/10/17 04/10/17 04/10/17 14:50 18:15 18:30 WBC RBC Hgb Hct MCV MCH MCHC RDW Plt Count MPV Gran % Lymph % (Auto) [place] % (Auto) Eos % (Auto) Baso % (Auto) Gran # Lymph # [place] # Eos # Baso # PT INR APTT pCO2 53 H pO2 352.0 H 54 HCO3 10.4 L ABG pH 6.90 L* ABG Total CO2 12.0 L ABG O2 Saturation 100.4 H ABG O2 Content 13.5 L ABG Base Excess -21.6 L ABG Hemoglobin 9.2 L ABG Carboxyhemoglobin 2.6 H POC ABG HHb (Measured) -0.4 L ABG Methemoglobin 1.2 ABG O2 Capacity 13.4 L ABG Potassium VBG pH 6.94 L* VBG pCO2 70.0 H* VBG HCO3 15.0 L VBG Total CO2 17.1 L VBG O2 Sat (Calc) 79.3 H VBG Base Excess -18.0 L VBG Potassium 6.0 H Hgb O2 Saturation 96.7 Sodium 141.0 Chloride 107.0 Glucose 124 H Lactate 10.0 H* FiO2 100.0 21.0 Potassium Carbon Dioxide Anion Gap BUN Creatinine Est GFR ( Amer) Est GFR (Non-Af Amer) Random Glucose Calcium Phosphorus Magnesium Total Bilirubin AST ALT Alkaline Phosphatase Troponin I Total Protein Albumin Globulin Albumin/Globulin Ratio Arterial Blood Potassium Venous Blood Potassium 6.0 H HIV 1&2 Ag/Ab, 4th Gen Nonreactive 04/10/17 04/10/17 04/11/17 20:30 22:30 01:50 WBC RBC Hgb Hct MCV MCH MCHC RDW Plt Count MPV Gran % Lymph % (Auto) [place] % (Auto) Eos % (Auto) Baso % (Auto) Gran # Lymph # [place] # Eos # Baso # PT INR APTT pCO2 56 H pO2 65.0 L 79 H 44 HCO3 13.5 L ABG pH 6.99 L* ABG Total CO2 15.2 L ABG O2 Saturation 90.1 L ABG O2 Content ABG Base Excess -18.2 L ABG Hemoglobin ABG Carboxyhemoglobin POC ABG HHb (Measured) ABG Methemoglobin ABG O2 Capacity ABG Potassium 5.1 VBG pH 7.04 L* 7.10 L* VBG pCO2 42.0 46.0 VBG HCO3 11.4 L 14.3 L VBG Total CO2 12.7 L 15.7 L VBG O2 Sat (Calc) 95.5 H 74.5 H VBG Base Excess -18.8 L -15.1 L VBG Potassium 4.7 3.0 L Hgb O2 Saturation Sodium 141.0 142.0 145.0 Chloride 113.0 H 108.0 H 115.0 H Glucose 115 H 123 H 136 H Lactate 9.1 H* 10.8 H* 8.8 H* FiO2 100.0 21.0 21.0 Potassium Carbon Dioxide Anion Gap BUN Creatinine Est GFR ( Amer) Est GFR (Non-Af Amer) Random Glucose Calcium Phosphorus Magnesium Total Bilirubin AST ALT Alkaline Phosphatase Troponin I Total Protein Albumin Globulin Albumin/Globulin Ratio Arterial Blood Potassium 5.1 Venous Blood Potassium 4.7 3.0 L HIV 1&2 Ag/Ab, 4th Gen 04/11/17 04/11/17 04/11/17 06:00 06:00 06:00 WBC 4.3 L D RBC 3.04 L Hgb 9.2 L D Hct 28.7 L MCV 94.4 D MCH 30.3 MCHC 32.1 RDW 14.5 Plt Count 148 MPV 9.9 Gran % 55.4 Lymph % (Auto) 37.0 H [place] % (Auto) 7.2 H Eos % (Auto) 0.2 L Baso % (Auto) 0.2 Gran # 2.38 Lymph # 1.6 [place] # 0.3 Eos # 0.0 Baso # 0.01 PT 23.8 H INR 2.13 H APTT 26.0 pCO2 pO2 HCO3 ABG pH ABG Total CO2 ABG O2 Saturation ABG O2 Content ABG Base Excess ABG Hemoglobin ABG Carboxyhemoglobin POC ABG HHb (Measured) ABG Methemoglobin ABG O2 Capacity ABG Potassium VBG pH VBG pCO2 VBG HCO3 VBG Total CO2 VBG O2 Sat (Calc) VBG Base Excess VBG Potassium Hgb O2 Saturation Sodium 148 Chloride 115 H Glucose Lactate FiO2 Potassium 3.0 L Carbon Dioxide 21 Anion Gap 15 BUN 35 H Creatinine 4.1 H Est GFR ( Amer) 14 Est GFR (Non-Af Amer) 12 Random Glucose 95 Calcium 6.4 L* Phosphorus 2.5 Magnesium 1.6 L Total Bilirubin 1.6 H AST 68915 H ALT 7271 H Alkaline Phosphatase 104 Troponin I 1.97 H* D Total Protein 4.5 L Albumin 2.1 L Globulin 2.4 Albumin/Globulin Ratio 0.9 L Arterial Blood Potassium Venous Blood Potassium HIV 1&2 Ag/Ab, 4th Gen 04/11/17 06:30 WBC RBC Hgb Hct MCV MCH MCHC RDW Plt Count MPV Gran % Lymph % (Auto) [place] % (Auto) Eos % (Auto) Baso % (Auto) Gran # Lymph # [place] # Eos # Baso # PT INR APTT pCO2 42 pO2 40.0 L* HCO3 15.3 L ABG pH 7.17 L* ABG Total CO2 16.6 L ABG O2 Saturation 70.4 L ABG O2 Content 7.0 L ABG Base Excess -12.3 L ABG Hemoglobin 7.2 L ABG Carboxyhemoglobin 1.6 H POC ABG HHb (Measured) 28.9 H ABG Methemoglobin 0.7 ABG O2 Capacity 9.9 L ABG Potassium VBG pH VBG pCO2 VBG HCO3 VBG Total CO2 VBG O2 Sat (Calc) VBG Base Excess VBG Potassium Hgb O2 Saturation 68.8 L Sodium Chloride Glucose Lactate FiO2 100.0 Potassium Carbon Dioxide Anion Gap BUN Creatinine Est GFR ( Amer) Est GFR (Non-Af Amer) Random Glucose Calcium Phosphorus Magnesium Total Bilirubin AST ALT Alkaline Phosphatase Troponin I Total Protein Albumin Globulin Albumin/Globulin Ratio Arterial Blood Potassium Venous Blood Potassium HIV 1&2 Ag/Ab, 4th Gen Assessment/Plan - Assessment and Plan (Free Text) Assessment: Patient seen and examined on rounds with resident, agree with note with following additions/exceptions: Patient is 51yo female with PMhx of bipolar disorder, with previous inpatient psych admissions, admitted with polysubstance overdose--opiates, BZDs, and EtOH , s/p cardiac arrest, unknown down time in the field. Patient with en route cardiac arrest, unknown down time, given Epinephrine 7 times. Currently intubated, off sedation, on 3 pressors, with Epinephrine, Levophed, Vasopressin. Neurological exam with NO corneals, gag reflex, does not overbreathe the ventilator, CT head c/w anoxic brain injury, EEG c/w flattened waves, braind . CXR with bilateral opacities, consistent with ARDS, currently on PEEP 14, fiO2 100%. Will attempt apnea test, but likely will not tolerate it as requiring such FiO2 requirements. vessel slag worker and Palliative Care, Priscila Jean MACHINE DEBURRER on the case. Attempting to discern who is the next of kin/HCP at this time. Patient with grave prognosis, likely has brain . ARDS Polysubstance overdose s/p Cardiac Arrest Multi Organ Failure Renal Failure Shock Liver Recommend: - cont with ventilator support, low tidal vol ventilation, goal plateau <30, would not paralyze as patient clinical exam consistent with brain and needs confirmation with apnea test - broad spectrum antibiotics - monitor - neurology follow up - follow up EEG - follow up pallaitive care - attempt to notify next of kin, family - attempt apnea test - over prognosis extremely poor, without brainstem reflexes, EEG flat and clinically consistent with brain , GCS 3 Critical care mike 45 minutes
--- NOTE | 2017-04-11 13:01 | CP.PCM.CON ---
History of Present Illness - History of Present Illness History of Present Illness: Mrs. Alanis is a 51-year-old woman who is s/p cardiac arrest due to suspected opiate overdose. Currently, the patient is intubated, off sedation, without brainstem reflexes and a CT scan of the head that was consistent with diffuse cerebral edema. EEG was basically flat and consistent with the clinical picture of brain . She is currently maxed out on pressers and does not have an appreciable blood pressure. She is not breathing over the ventilator and has no clinical response with an GCS of 3. Review of Systems - Review of Systems Systems not reviewed;Unavailable: Unstable Vital Signs Past Patient History - Infectious Disease Hx of Infectious Diseases: None - Tetanus Immunizations Tetanus Immunization: Unknown - Past Social History Smoking Status: Light Smoker < 10 Cigarettes Daily - CARDIAC Hx Cardiac Disorders: No - PULMONARY Hx Respiratory Disorders: No - NEUROLOGICAL Hx Migraine: Yes Hx Paralysis: No - HEENT Hx HEENT Problems: Yes (Wears glasses.) - RENAL Hx Chronic Kidney Disease: No - ENDOCRINE/METABOLIC Hx Endocrine Disorders: No - HEMATOLOGICAL/ONCOLOGICAL Hx Blood Transfusions: No - INTEGUMENTARY Hx Dermatological Problems: No - MUSCULOSKELETAL/RHEUMATOLOGICAL Hx Falls: No - GASTROINTESTINAL Hx Diverticulitis: Yes Hx Gastroesophageal Reflux: Yes - GENITOURINARY/GYNECOLOGICAL Hx Genitourinary Disorders: No - PSYCHIATRIC Hx Anxiety: Yes Hx Bipolar Disorder: Yes Hx Depression: Yes Hx Substance Use: No - SURGICAL HISTORY Hx Appendectomy: Yes - ANESTHESIA Hx Anesthesia: No Meds Allergies/Adverse Reactions: Allergies Allergy/AdvReac Type Severity Reaction Status Date / Time haloperidol [From Haldol] Allergy ANAPHYLAXIS Verified 02/03/17 23:01 haloperidol lactate Allergy ANAPHYLAXIS Verified 02/03/17 23:01 [From Haldol] lamotrigine [From Lamictal] Allergy ANAPHYLAXIS Verified 02/03/17 23:01 - Medications Medications: Current Medications Hydrocortisone Sodium Succinate (Solu-Cortef) 50 mg IVP Q8 BETSEY Sodium Chloride (Sodium Chloride 0.9%) 1,000 mls @ 100 mls/hr IV .Q10H [facility]SEY Last Admin: 04/11/17 01:15 Dose: 100 mls/hr Vasopressin 20 units/ Sodium (Chloride) 101 mls @ 9.09 mls/hr IV .Q11H7M BETSEY; 0.03 U/MIN PRN Reason: Protocol Last Admin: 04/11/17 01:15 Dose: 9.09 mls/hr Epinephrine HCl 2 mg/ Sodium (Chloride) 102 mls @ 3.06 mls/hr IV .Q24H PRN; Protocol; 1 MCG/MIN PRN Reason: TITRATE PER MD ORDER Last Titration: 04/11/17 11:45 Dose: 3 mcg/min, 9.18 mls/hr Norepinephrine Bitartrate 8 mg (/ Sodium Chloride) 258 mls @ 94.81 mls/hr IV .Q2H44M BETSEY; 49 MCG/MIN PRN Reason: Protocol Last Admin: 04/11/17 12:03 Dose: 40 mcg/min, 77.4 mls/hr Vancomycin HCl (Vancomycin 1gm) 1 gm in 250 mls @ 167 mls/hr IVPB DAILY BETSEY PRN Reason: Protocol Last Admin: 04/11/17 11:37 Dose: 167 mls/hr Cefepime HCl (Maxipime 1gm) 1 gm in 100 mls @ 100 mls/hr IVPB DAILY BETSEY PRN Reason: Protocol Pantoprazole Sodium (Protonix Inj) 40 mg IVP Q12 BETSEY Last Admin: 04/11/17 09:54 Dose: 40 mg Physical Exam - Constitutional Appears: Toxic - Neurological Exam Additional comments: Pupils are fixed and dilated bilaterally. No cough, no gag, no corneal response , not breathing over the ventilator. No response to pain. GCS=3T Results - Vital Signs Recent Vital Signs: Last Vital Signs Temp 95.4 F L 04/11/17 04:00 Pulse 110 H 04/11/17 07:03 Resp 20 04/11/17 07:03 BP 126/90 04/11/17 06:31 Pulse Ox 77 L 04/11/17 06:50 - Labs Result Diagrams: 04/11/17 06:00 04/11/17 06:00 Labs: Laboratory Results - last 24 hr 04/10/17 04/10/17 04/10/17 14:50 18:15 20:30 WBC RBC Hgb Hct MCV MCH MCHC RDW Plt Count MPV Gran % Lymph % (Auto) [place] % (Auto) Eos % (Auto) Baso % (Auto) Gran # Lymph # [place] # Eos # Baso # PT INR APTT pCO2 53 H 56 H pO2 352.0 H 54 65.0 L HCO3 10.4 L 13.5 L ABG pH 6.90 L* 6.99 L* ABG Total CO2 12.0 L 15.2 L ABG O2 Saturation 100.4 H 90.1 L ABG O2 Content 13.5 L ABG Base Excess -21.6 L -18.2 L ABG Hemoglobin 9.2 L ABG Carboxyhemoglobin 2.6 H POC ABG HHb (Measured) -0.4 L ABG Methemoglobin 1.2 ABG O2 Capacity 13.4 L ABG Potassium 5.1 VBG pH 6.94 L* VBG pCO2 70.0 H* VBG HCO3 15.0 L VBG Total CO2 17.1 L VBG O2 Sat (Calc) 79.3 H VBG Base Excess -18.0 L VBG Potassium 6.0 H Hgb O2 Saturation 96.7 Sodium 141.0 141.0 Chloride 107.0 113.0 H Glucose 124 H 115 H Lactate 10.0 H* 9.1 H* FiO2 100.0 21.0 100.0 Potassium Carbon Dioxide Anion Gap BUN Creatinine Est GFR ( Amer) Est GFR (Non-Af Amer) Random Glucose Calcium Phosphorus Magnesium Total Bilirubin AST ALT Alkaline Phosphatase Troponin I Total Protein Albumin Globulin Albumin/Globulin Ratio Arterial Blood Potassium 5.1 Venous Blood Potassium 6.0 H 04/10/17 04/11/17 04/11/17 22:30 01:50 06:00 WBC 4.3 L D RBC 3.04 L Hgb 9.2 L D Hct 28.7 L MCV 94.4 D MCH 30.3 MCHC 32.1 RDW 14.5 Plt Count 148 MPV 9.9 Gran % 55.4 Lymph % (Auto) 37.0 H [place] % (Auto) 7.2 H Eos % (Auto) 0.2 L Baso % (Auto) 0.2 Gran # 2.38 Lymph # 1.6 [place] # 0.3 Eos # 0.0 Baso # 0.01 PT INR APTT pCO2 pO2 79 H 44 HCO3 ABG pH ABG Total CO2 ABG O2 Saturation ABG O2 Content ABG Base Excess ABG Hemoglobin ABG Carboxyhemoglobin POC ABG HHb (Measured) ABG Methemoglobin ABG O2 Capacity ABG Potassium VBG pH 7.04 L* 7.10 L* VBG pCO2 42.0 46.0 VBG HCO3 11.4 L 14.3 L VBG Total CO2 12.7 L 15.7 L VBG O2 Sat (Calc) 95.5 H 74.5 H VBG Base Excess -18.8 L -15.1 L VBG Potassium 4.7 3.0 L Hgb O2 Saturation Sodium 142.0 145.0 Chloride 108.0 H 115.0 H Glucose 123 H 136 H Lactate 10.8 H* 8.8 H* FiO2 21.0 21.0 Potassium Carbon Dioxide Anion Gap BUN Creatinine Est GFR ( Amer) Est GFR (Non-Af Amer) Random Glucose Calcium Phosphorus Magnesium Total Bilirubin AST ALT Alkaline Phosphatase Troponin I Total Protein Albumin Globulin Albumin/Globulin Ratio Arterial Blood Potassium Venous Blood Potassium 4.7 3.0 L 04/11/17 04/11/17 04/11/17 06:00 06:00 06:30 WBC RBC Hgb Hct MCV MCH MCHC RDW Plt Count MPV Gran % Lymph % (Auto) [place] % (Auto) Eos % (Auto) Baso % (Auto) Gran # Lymph # [place] # Eos # Baso # PT 23.8 H INR 2.13 H APTT 26.0 pCO2 42 pO2 40.0 L* HCO3 15.3 L ABG pH 7.17 L* ABG Total CO2 16.6 L ABG O2 Saturation 70.4 L ABG O2 Content 7.0 L ABG Base Excess -12.3 L ABG Hemoglobin 7.2 L ABG Carboxyhemoglobin 1.6 H POC ABG HHb (Measured) 28.9 H ABG Methemoglobin 0.7 ABG O2 Capacity 9.9 L ABG Potassium VBG pH VBG pCO2 VBG HCO3 VBG Total CO2 VBG O2 Sat (Calc) VBG Base Excess VBG Potassium Hgb O2 Saturation 68.8 L Sodium 148 Chloride 115 H Glucose Lactate FiO2 100.0 Potassium 3.0 L Carbon Dioxide 21 Anion Gap 15 BUN 35 H Creatinine 4.1 H Est GFR ( Amer) 14 Est GFR (Non-Af Amer) 12 Random Glucose 95 Calcium 6.4 L* Phosphorus 2.5 Magnesium 1.6 L Total Bilirubin 1.6 H AST 86055 H ALT 7271 H Alkaline Phosphatase 104 Troponin I 1.97 H* D Total Protein 4.5 L Albumin 2.1 L Globulin 2.4 Albumin/Globulin Ratio 0.9 L Arterial Blood Potassium Venous Blood Potassium Assessment & Plan (1) Anoxic brain damage Assessment and Plan: Based on the clinical picture, CT scan and EEG, the patient is likely brain . I recommend speaking with family and performing an apnea study if the patient meets the requirements. No possible neurologic intervention is warranted. Status: Acute Priority: High
[2017-04-11] MEDS ORDERED: Dextrose 50% SYRINGE Inj (50 ml) ONE (14:00)
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
[2017-04-11] MEDS ORDERED: Dextrose 50% SYRINGE Inj (50 ml) IVP ONE (14:24)
[2017-04-11 16:13] VITALS: RESP 24
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
[2017-04-11] MEDS: EPINEPHRINE IV PRN (19:43)
[2017-04-11] MEDS: SODIUM CHLORIDE 0.9% IV PRN (19:43)
[2017-04-12] MEDS: EPINEPHRINE IV PRN (00:24)
[2017-04-12] MEDS: SODIUM CHLORIDE 0.9% IV PRN (00:24)
[2017-04-12 04:06] VITALS: BP 174/35; PULSE 116; O2SAT 81
--- NOTE | 2017-04-12 04:09 | CP.PCM.PRO ---
<Kristin Capellan - Last Filed: 04/12/17 04:11> Pronouncement of Note - Clinical Findings Physical Exam: No Response Verbal/Painful Stimuli, Absent Peripheral Pulses{ Carotid & Femoral}, Absent Heart & Breath Sounds, No Pupillary Light Reflex, No Corneal Reflex, Pupils Fixed & Dilated, Absence of Vital Signs - Pronouncement Time Time of Pronouncement of : 04:00 - Notifications Pronouncement Notifications: Atending Notified Sql Programmer Notified: Yes - Autopsy Autopsy Requested: Yes - [place] [id number] <Jimmie Zhang - Last Filed: 04/12/17 05:57> Pronouncement of Note - [place] Additional Comments: Agree w/the above; EDRS case certification started online, to be completed by the attending physician on board.
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
[2017-04-12 07:10] VITALS: TEMP 103.2
== END 2017-04-12 07:52 | DRG 917 ==
LOC: ED 13:17 → ERH 14:47 → CCU 17:51
PROVIDERS: ADMIT Hospitalist; ATTEND Internal Medicine
PROC: 5A1935Z Respiratory Ventilation, Less than 24 Consecutive Hours (ICD-10-PCS; principal; 2017-04-10)
PROC: 5A12012 Performance of Cardiac Output, Single, Manual (ICD-10-PCS; 2017-04-10)
PROC: 0BH17EZ Insertion of Endotracheal Airway into Trachea, Via Natural or Artificial Opening (ICD-10-PCS; 2017-04-10)
PROC: 06HM33Z Insertion of Infusion Device into Right Femoral Vein, Percutaneous Approach (ICD-10-PCS; 2017-04-10)
PROC: B54BZZA Ultrasonography of Right Lower Extremity Veins, Guidance (ICD-10-PCS; 2017-04-10)
DX: T40.602A Poisoning by unspecified narcotics, intentional self-harm, initial encounter (principal); J96.91 Respiratory failure, unspecified with hypoxia; G93.6 Cerebral edema; I46.9 Cardiac arrest, cause unspecified; A41.81 Sepsis due to Enterococcus; J18.9 Pneumonia, unspecified organism; G93.1 Anoxic brain damage, not elsewhere classified; E46 Unspecified protein-calorie malnutrition; K72.00 Acute and subacute hepatic failure without coma; N17.9 Acute kidney failure, unspecified; E87.2 Acidosis; Z99.11 Dependence on respirator [ventilator] status; T42.4X2A Poisoning by benzodiazepines, intentional self-harm, initial encounter; T51.0X2A Toxic effect of ethanol, intentional self-harm, initial encounter; E16.2 Hypoglycemia, unspecified; E87.6 Hypokalemia; E87.5 Hyperkalemia; Z66 Do not resuscitate; Z90.49 Acquired absence of other specified parts of digestive tract; Z79.899 Other long term (current) drug therapy; K21.9 Gastro-esophageal reflux disease without esophagitis; H57.04 Mydriasis; F31.9 Bipolar disorder, unspecified; Y09 Assault by unspecified means; Z86.69 Personal history of other diseases of the nervous system and sense organs; F41.9 Anxiety disorder, unspecified; Z88.8 Allergy status to other drugs, medicaments and biological substances; Z87.892 Personal history of anaphylaxis; F17.210 Nicotine dependence, cigarettes, uncomplicated; Z87.19 Personal history of other diseases of the digestive system; R74.0 Nonspecific elevation of levels of transaminase and lactic acid dehydrogenase [LDH]; R40.2433 Glasgow coma scale score 3-8, at hospital admission